=== PATIENT | male | born 1955 | race Caucasian/White ===

== ENCOUNTER 2016-12-07 13:28 | Emergency (ER) | payer BC ==
[2016-12-07 13:59] VITALS: BP 116/63
--- NOTE | 2016-12-07 16:16 | ERNOTE ---
Upper Extremity HPI - Narrative Date of Service: 12/07/16 - General Extremities Pain Location: 2nd finger: left Time Seen by Provider: 12/07/16 15:34 Source: patient, RN notes reviewed Exam Limitations: no limitations - Immun/Allergies/Home Medications Immunizations: IMMUNIZATION HX Immunizations Up to Date Yes History of Influenza Vaccine No Hx Pneumococcal Vaccination No Allergies/Adverse Reactions: Allergies Allergy/AdvReac Type Severity Reaction Status Date / Time codeine AdvReac Nausea Verified 12/07/16 14:00 Home Medications: HOME MEDICATIONS DULoxetine HCL [Cymbalta] 60 mg PO DAILY 11/16/12 [Last Taken Unknown] Ranitidine HCl 150 mg PO BID 11/16/12 [Last Taken Unknown] Amiodarone HCl 200 mg PO DAILY 03/22/14 [Last Taken Unknown] Carvedilol 25 mg PO BID 03/22/14 [Last Taken Unknown] Warfarin Sodium [Coumadin] 5 mg PO MOWEFR 03/22/14 [Last Taken Unknown] Albuterol Sulfate [Proair Hfa] 1 - 2 puff IH Q6H PRN 11/17/14 [Last Taken Unknown] Furosemide [Lasix] 80 mg PO DAILY 01/23/15 [Last Taken Unknown] Warfarin Sodium [Coumadin] 2.5 mg PO SUTUTHSA 01/23/15 [Last Taken Unknown] Fenofibrate,Micronized [Lofibra] 134 mg PO DAILY 06/13/15 [Last Taken Unknown] [place] Oil/[place]-3 Fatty Acids [Fish Oil] 1,200 mg PO BID 06/13/15 [Last Taken Unknown] Atorvastatin Calcium [Lipitor] 20 mg PO DAILY 02/05/16 [Last Taken Unknown] Lisinopril [Zestril] 20 mg PO DAILY 11/02/16 [Last Taken Unknown] Symbicort 80-4.5 Mcg Inhaler INH BID 12/07/16 [Last Taken Unknown] - History of Present Illness Narrative: Ariel is a 61 year old male who presents for a laceration to his left index finger. He cut himself at home with a clean knife just prior to arrival. Date (Duration): 12/07/16 Occurred: just prior to arrival Location of Incident: home Severity: mild Review of Systems - Review of Systems Constitutional: Present: no symptoms reported EYE: Present: no symptoms reported ENT: Present: no symptoms reported Respiratory: Present: no symptoms reported Cardiology: Present: no symptoms reported Gastrointestinal/Abdominal: Present: no symptoms reported Genitourinary: Present: no symptoms reported Musculoskeletal: Absent: joint pain, joint swelling Skin: Absent: lumps, change in color Neurological: Absent: weakness, numbness, tingling Endocrine: Present: no symptoms reported Hematologic/Lymphatic: Present: easy bruising, easy bleeding Psych: Present: no symptoms reported - Patient's Past Medical History Patient History - Medical: Diabetes Type 2, Renal Disease Patient History - Cardiac/Respiratory: Atrial Fibrillation, Cardiomyopathy, CHF , COPD, Hypertension, Hyperlipidemia Patient History - Cancer: No Hx of Cancer Patient History - Surgical Procedures: Pacemaker, Other - Family History Mother Family History - Medical: Diabetes Type 2 Family History - Cardiac/Respiratory: Other Family History - Cancer: No Hx of cancer Father Family History - Medical: Diabetes Type 2 Family History - Cardiac/Respiratory: CVA/Stroke, Hypertension Family History - Cancer: No Hx of cancer - Social History Living Situations: significant other Does anyone smoke in the home?: No Smoking Status: Former smoker Have you smoked in the past 12 months: No Do you dip or chew tobacco: No Alcohol Use: none Drug Use: none - Immunizations Immunizations Up to Date: Yes - reports last tetanus less than 10 yrs Physical Exam - Physical Exam General Appearance: Present: wd/wn, alert, no apparent distress Respiratory: Present: no respiratory distress, no accessory muscle use Cardiovascular/Chest: Present: normal peripheral pulses Extremity Exam: Present: no edema, normal range of motion. Absent: joint swelling Neurological Exam: Present: alert, oriented, normal mood/affect, no motor/ sensory deficits Skin Exam: Present: normal color, warm/dry, other - laceration to dorsum of left index finger between MCP and PIP joints ED Progress - Vital Signs Patient's Vital Signs:: I have reviewed the patient's vital signs. Vital Signs: Vital Signs 12/07/16 13:51 Temperature 36.2 C L Pulse Rate 69 Respiratory 16 Rate Blood Pressure 116/63 O2 Sat by Pulse 93 Oximetry - Progress/Reassessment Chief Complaint: Hand Injury/Pain Progress:: Improved Procedures Left Proximal Dorsal Finger 2nd Digit Anesthesia: 1% Lidocaine I & D Prep: betadine prep Length of Repair/Wound (cm): 2 Wound's Depth/Shape: into subcutaneous, linear Wound Explored: clean, to base, in bloodless field, no foreign body Wound Intervention: irrigated w/saline Distal NVT: neuro/vasc intact, no tendon injury Wound Repaired With: sutures Suture Size/Type: 4-0, nylon Number of Sutures: 5 Layer Closure: Simple Wound Dressing: sterile dressing applied Complications: Pt collin procedure well Departure Clinical Impression: Laceration of index finger of left hand without complication Qualifiers: Encounter type: initial encounter Qualified Code(s): S61.211A - Laceration without foreign body of left index finger without damage to nail, initial encounter - Departure Disposition: Home Follow Up Needed Condition: Good Instructions: Sutured Wound Care, [id number] Additional Instructions: Keep dressing in place and dry for 48 hours May then wash gently with soap and water Apply antibiotic ointment and bandage as needed Ice, elevate Tylenol for pain Have sutures removed in 7 days Referrals: Jefry Flores MD [Primary Care Provider] -
== END 2016-12-07 16:45 | disposition home or self-care (01) ==
LOC: ER 13:28
PROC: 0HQGXZZ Repair Left Hand Skin, External Approach (ICD-10-PCS; principal; 2016-12-07)
DX: S61.211A Laceration without foreign body of left index finger without damage to nail, initial encounter (principal); W26.0XXA Contact with knife, initial encounter; Y92.009 Unspecified place in unspecified non-institutional (private) residence as the place of occurrence of the external cause

== ENCOUNTER 2017-05-24 06:50 | Emergency (ER) | payer BC ==
[2017-05-24] MEDS ORDERED: ALBUTEROL SULFATE 2.5 MG/3 ML VIAL.NEB IH ONE ×3 (07:10→09:01)
[2017-05-24] MEDS ORDERED: DEXAMETHASONE SOD PHOSPHATE 10 MG/ML VIAL IV ONE (07:10)
[2017-05-24] MEDS ORDERED: ALBUTEROL SULFATE/IPRATROPIUM 3 ML NEBU IH ONE ×2 (07:10→07:15)
[2017-05-24] MEDS ORDERED: DEXAMETHASONE SOD PHOSPHATE 10 MG/ML VIAL ONE (07:15)
[2017-05-24] MEDS ORDERED: ALBUTEROL SULFATE 2.5 MG/0.5 ML VIAL.NEB IH ONE ×3 (07:15→09:06)
--- NOTE | 2017-05-24 07:23 | ERNOTE ---
<Jey Andrews - Last Filed: 05/24/17 13:17> Dyspnea - Immun/Allergies/Home Medications Immunizations: IMMUNIZATION HX Immunizations Up to Date Yes History of Influenza Vaccine No Hx Pneumococcal Vaccination No Allergies/Adverse Reactions: Allergies codeine Adverse Reaction (Verified 05/24/17 07:02) Nausea upsets his stomache a little bit Home Medications: HOME MEDICATIONS DULoxetine HCL [Cymbalta] 60 mg PO DAILY 11/16/12 [Last Taken Unknown] Carvedilol 25 mg PO BID 03/22/14 [Last Taken Unknown] Warfarin Sodium [Coumadin] 5 mg PO MOWEFR 03/22/14 [Last Taken Unknown] Albuterol Sulfate [Proair Hfa] 1 - 2 puff IH Q6H PRN 11/17/14 [Last Taken Unknown] Warfarin Sodium [Coumadin] 2.5 mg PO SUTUTHSA 01/23/15 [Last Taken Unknown] Fenofibrate,Micronized [Lofibra] 134 mg PO DAILY 06/13/15 [Last Taken Unknown] [place] Oil/[place]-3 Fatty Acids [Fish Oil] 1,200 mg PO BID 06/13/15 [Last Taken Unknown] Atorvastatin Calcium [Lipitor] 20 mg PO DAILY 02/05/16 [Last Taken Unknown] Lisinopril [Zestril] 20 mg PO DAILY 11/02/16 [Last Taken Unknown] Budesonide/Formoterol Fumarate [Symbicort 80-4.5 Mcg Inhaler] 2 puff IH BID 06/16 [Last Taken Unknown] Allopurinol [Zyloprim] 100 mg PO DAILY 04/23/17 [Last Taken Unknown] Montelukast Sodium [Singulair] 10 mg PO DAILY 04/23/17 [Last Taken Unknown] oxyCODONE HCL [Oxycodone] 10 mg PO Q6H PRN 05/16/17 [Last Taken Unknown] Amiodarone HCl [Cordarone] 200 mg PO DAILY 05/24/17 [Last Taken Unknown] Furosemide [Lasix] 80 mg PO BID #60 tablet 05/24/17 [Last Taken Unknown] Potassium Chloride [K-Dur] 20 meq PO DAILY #30 tab 05/24/17 [Last Taken Unknown] ED Progress - Vital Signs Vital Signs: Vital Signs 05/24/17 05/24/17 05/24/17 06:56 07:22 07:36 Temperature 36.9 C Pulse Rate 65 65 66 Respiratory 18 16 18 Rate Blood Pressure 150/75 O2 Sat by Pulse 96 99 97 Oximetry 05/24/17 05/24/17 05/24/17 07:39 07:52 07:59 Temperature Pulse Rate 60 60 65 Respiratory 21 H 21 H 16 Rate Blood Pressure 165/75 144/78 O2 Sat by Pulse 97 97 95 Oximetry 05/24/17 08:01 Temperature Pulse Rate 65 Respiratory 11 L Rate Blood Pressure 155/89 O2 Sat by Pulse 96 Oximetry - EKG EKG Comments: I have interpreted the second EKG and their is no change from the first. TERRI [id number] He is a little SOB again. We are giving him 40 mg more of IV lasix because of his SOB and his elevated BNP and prominent veins on CXR. we are waiting on his second troponin. We are giving him another albuterol treatment. - X-Ray X-Ray #1 X-Ray: chest Interpretation: Interp. by me - poorly expanded cxr, no infiltrate, probably bronchitis,maybe prominent vasculature - Progress/Reassessment Chief Complaint: Dyspnea Progress:: Improved Progress Note-Subjective: 05/24/17 08:10 0810 Spoke with patient, feeling modestly better, less sob, lungs less tight, abdomen pushing less on diaphragm, getting breathing treatment right now. Looks comfortable. TERRI LOPEZ. Have noted minimally elevated troponin. 05/24/17 11:05 Borderline high D-dimer. Elevated creatinine. Can't do CT chest angio. Will do ultrasound leg veins and give a little more lasix. symptoms continue to improved. DWK. LOPEZ. 05/24/17 1106. 05/24/17 13:17 Much better with additional lasix. Now offers that he has been gaining weight at home in spite of eating less. He will call our coumadin clinic on Friday about his slightly high INR here in the ER today. His elevated BP here in the ER is now slightly better with additional BP medicine here in the ER. His leg vein ultrasound studies are negative for clots today. TERRI LOPEZ. 05/24/17 1319 - Transfer of Care Additional Notes: 0900 05/24/17 His repeat troponin and potassium are essentially unchanged. We will give him another dose of oral potassium. We will continue to monitor him clinically for a while. We are still waiting for a D-dimer level. Departure Clinical Impression: CHF (congestive heart failure) Qualifiers: Congestive heart failure type: unspecified congestive heart failure type Congestive heart failure chronicity: acute on chronic Qualified Code(s): I50.9 - Heart failure, unspecified - Departure Disposition: Home self-care Condition: Good Instructions: Heart Failure, [id number] Additional Instructions: Weigh yourself about the same time daily. If you gain more than two pounds in 24 hours or more than three pounds in 7 days , call your doctor. On Friday morning, call our coumadin clinic about a coumadin dose adjustment. On Friday, call Dr. Flores's office about an office visit for Friday, especially as it pertains to a possible dose change in your lasix and potassium dose. Referrals: Jefry Flores MD [Primary Care Provider] - Prescriptions: Furosemide [Lasix] 80 mg PO BID #60 tablet Potassium Chloride [K-Dur] 20 meq PO DAILY #30 tab <Donta Hewitt - Last Filed: 05/30/17 11:18> Dyspnea - Date Date of Service: 05/24/17 - General Presenting Symptoms: shortness of breath Source: patient Exam Limitations: no limitations - Immun/Allergies/Home Medications Immunizations: IMMUNIZATION HX Immunizations Up to Date Yes History of Influenza Vaccine No Hx Pneumococcal Vaccination No - History of Present Illness Narrative: 62 year old that has been having progressively worsening shortness of breath for two weeks. He believes the onset of the dyspnea was associated with a Indocin (?) or what he calls the "flair up medicine" two weeks ago that was used for his gout. Exertion increases his dyspnea to the point that he is out of breath when he walks across the room. Ariel has used his Albuterol inhaler without resolution of the symptoms. Denies any chest pain, fevers, chills, or N/V. He does notice that the supine position that he feels worse and has abdominal discomfort. 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 Modifying Factors - (Improves): Reports: rest Modifying Factors (Worsens): Reports: activity Associated Symptoms-Dyspnea: Reports: denies symptoms Review of Systems - Review of Systems Constitutional: Present: no symptoms reported EYE: Present: no symptoms reported ENT: Present: no symptoms reported Respiratory: Present: See HPI Cardiology: Present: See HPI Gastrointestinal/Abdominal: Present: no symptoms reported Genitourinary: Present: no symptoms reported Musculoskeletal: Present: no symptoms reported Skin: Present: no symptoms reported Neurological: Present: no symptoms reported Endocrine: Present: no symptoms reported Hematologic/Lymphatic: Present: no symptoms reported - Patient's Past Medical History Patient History - Medical: Diabetes Type 2, Renal Disease Patient History - Cardiac/Respiratory: Asthma, CHF, COPD, Hypertension, Hyperlipidemia Patient History - Cancer: No Hx of Cancer Patient History - Surgical Procedures: Pacemaker, Other Patient History - Other: None - Family History Mother Family History - Medical: Diabetes Type 2 Family History - Cardiac/Respiratory: Other Father Family History - Medical: Diabetes Type 2 Family History - Cardiac/Respiratory: CVA/Stroke, Hypertension - Social History Living Situations: significant other Abuse History: No History of abuse Psych History: No pertinent hx Does anyone smoke in the home?: No Smoking Status: Former smoker Have you smoked in the past 12 months: No Do you dip or chew tobacco: No Alcohol Use: none Drug Use: none - Immunizations Immunizations Up to Date: Yes Hx Pneumococcal Vaccination: No History of Influenza Vaccine: No Physical Exam - Physical Exam General Appearance: Present: alert Eye Exam: Normal inspection: bilateral Ears, Nose, Throat: Present: normal ENT inspection Neck: Present: normal inspection Respiratory: Present: no respiratory distress, no accessory muscle use, decreased breath sounds - bilaterally Cardiovascular/Chest: Present: regular rate, rhythm Gastrointestinal/Abdominal: Present: nondistended, soft, no organomegaly Back Exam: Present: normal inspection Extremity Exam: Present: normal inspection Neurological Exam: Present: alert, oriented, normal mood/affect Skin Exam: Present: normal color, warm/dry ED Progress - Results and Orders Patient's Lab Results:: I have reviewed the patient's lab results. - Vital Signs Patient's Vital Signs:: I have reviewed the patient's vital signs. Vital Signs: Vital Signs 05/24/17 06:56 Temperature 36.9 C Pulse Rate 65 Respiratory 18 Rate Blood Pressure 150/75 O2 Sat by Pulse 96 Oximetry - EKG EKG read: Interp. by me EKG Comments: pacemaker rhythm, rate of 65 - X-Ray X-Ray #1 X-Ray: chest Interpretation: Interp. by me - Progress/Reassessment Progress:: Improved Progress Note-Subjective: 05/24/17 07:44 Feels about 25 % better after the first set of nebulizer treatments. - Transfer of Care Physician Sign Out: Donta Hewitt Receiving Physician: Jey Andrews Pending Results: Labs, X-ray results Expected Disposition: Discharge
[2017-05-24 07:29] LABS: Hematocrit 36.5 % (42.0-52.0); Hemoglobin 11.5 gm/dL (13.5-18.0); Mean Cell Volume 92.2 fl (78-100); Mean Corpuscular Hgb Conc 31.5 g/dl (32-36); Mean Platelet Volume 13.3 fl (6.0-9.5); Neutrophil # 4.4 K/mm3 (1.3-6.0); Neutrophil % 71.4 % (42-75.0); Platelet Count 182 K/mm3 (150-450); Red Blood Count 3.96 M/mm3 (4.7-6.0); Red Cell Distribution Width 15.6 % (11.5-14.0); White Blood Count 6.1 K/mm3 (4.0-10.5)
[2017-05-24 07:50] LABS: Anion Gap 9.7 mmol/L (6.8-13.8); BUN/Creatinine Ratio 11.5 (9.0-21.6); Calcium * 8.9 mg/dL (7.9-10.9); Carbon Dioxide 31.4 mmol/L (24-32.6); Estimated Creat Clear 41.2; Potassium 3.1 mmol/L (3.4-4.6)
[2017-05-24 07:51] LABS: Troponin I 0.123 ng/ml (0.00-0.10)
[2017-05-24] MEDS ORDERED: POTASSIUM CHLORIDE 20 MEQ TABLET.SA PO ONE ×2 (07:53→09:43)
[2017-05-24] MEDS ORDERED: POTASSIUM CHLORIDE 20 MEQ TABLET.SA ONE ×2 (07:55→09:54)
[2017-05-24] MEDS ORDERED: FUROSEMIDE 10 MG/ML VIAL IV ONE ×3 (08:16→10:51)
[2017-05-24] MEDS ORDERED: FUROSEMIDE 10 MG/ML VIAL ONE ×2 (08:24→10:54)
[2017-05-24 09:04] LABS: Prothrombin Time (Patient) 34.6 Seconds (9.4-11.4)
[2017-05-24 09:09] LABS: INR 3.33 INR (0.90-1.10)
[2017-05-24 09:37] LABS: Troponin I 0.119 ng/ml (0.00-0.10)
[2017-05-24 09:41] LABS: Potassium 3.1 mmol/L (3.4-4.6)
[2017-05-24] MEDS ORDERED: ONDANSETRON HCL/PF 2 MG/ML VIAL IV ONE (12:27)
[2017-05-24] MEDS ORDERED: ONDANSETRON HCL/PF 2 MG/ML VIAL ONE (12:28)
[2017-05-24] MEDS ORDERED: METOPROLOL TARTRATE 25 MG TABLET PO ONE (12:31)
[2017-05-24] MEDS ORDERED: ENALAPRILAT DIHYDRATE 2.5 MG/2 ML VIAL IV ONE ×2 (12:31→12:35)
[2017-05-24] MEDS ORDERED: METOPROLOL TARTRATE 25 MG TABLET ONE (12:35)
[2017-05-24 13:25] VITALS: BP 160/89
== END 2017-05-24 13:34 | disposition home or self-care (01) ==
LOC: ER 06:50
DX: I50.9 Heart failure, unspecified (principal); E11.9 Type 2 diabetes mellitus without complications; N28.9 Disorder of kidney and ureter, unspecified; J44.9 Chronic obstructive pulmonary disease, unspecified; I10 Essential (primary) hypertension; E78.5 Hyperlipidemia, unspecified
CPT/HCPCS: 36415; 71010; 80048; 83880; 84132; 84484; 85025; 85379; 85610; 93005; 93970; 96374; 96375; 99285; J2405

== ENCOUNTER 2017-07-30 19:45 | Emergency (ER) | payer BC ==
--- NOTE | 2017-07-30 20:09 | ERNOTE ---
Dyspnea - General Presenting Symptoms: shortness of breath Time Seen by Provider: 07/30/17 19:59 Source: patient Exam Limitations: no limitations - Immun/Allergies/Home Medications Immunizations: IMMUNIZATION HX Immunizations Up to Date Yes History of Influenza Vaccine No Hx Pneumococcal Vaccination No Allergies/Adverse Reactions: Allergies indomethacin Adverse Reaction (Severe, Verified 07/30/17 20:02) Other hospitalized for CHF exacerbation. told it was induced by indomethacin and never to use again codeine Adverse Reaction (Verified 07/30/17 20:02) Nausea upsets his stomache a little bit Home Medications: HOME MEDICATIONS DULoxetine HCL [Cymbalta] 60 mg PO DAILY 11/16/12 [Last Taken Unknown] Carvedilol 37.5 mg PO BID 03/22/14 [Last Taken Unknown] Warfarin Sodium [Coumadin] 5 mg PO MOWEFR 03/22/14 [Last Taken Unknown] Albuterol Sulfate [Proair Hfa] 1 - 2 puff IH Q6H PRN 11/17/14 [Last Taken Unknown] Warfarin Sodium [Coumadin] 2.5 mg PO SUTUTHSA 01/23/15 [Last Taken Unknown] Fenofibrate,Micronized [Lofibra] 134 mg PO DAILY 06/13/15 [Last Taken Unknown] [place] Oil/[place]-3 Fatty Acids [Fish Oil] 1,200 mg PO BID 06/13/15 [Last Taken Unknown] Atorvastatin Calcium [Lipitor] 20 mg PO DAILY 02/05/16 [Last Taken Unknown] Allopurinol [Zyloprim] 100 mg PO DAILY 04/23/17 [Last Taken Unknown] Montelukast Sodium [Singulair] 10 mg PO DAILY 04/23/17 [Last Taken Unknown] oxyCODONE HCL [Oxycodone] 10 mg PO Q6H PRN 05/16/17 [Last Taken Unknown] Furosemide [Lasix] 80 mg PO DAILY 06/07/17 [Last Taken Unknown] Potassium Chloride [K-Dur] 20 meq PO DAILY 06/07/17 [Last Taken Unknown] Sacubitril/Valsartan [Entresto 49 mg-51 mg Tablet] 1 each PO DAILY 06/07/17 [ Last Taken Unknown] Albuterol Sulfate/Ipratropium [Duoneb 2.5-0.5MG/3ML Soln] 3 ml IH QID 07/11/17 [ Last Taken Unknown] Budesonide/Formoterol Fumarate [Symbicort 160-4.5 Mcg Inhaler] 2 puff IH BID 10/17 [Last Taken Unknown] Levothyroxine Sodium [Levoxyl] 50 mcg PO DAILY 07/11/17 [Last Taken Unknown] Morphine Sulfate [Morphine Sulfate Conc. Oral Solution] 5 mg PO Q2H PRN [Last Taken Unknown] Polyethylene Glycol 3350 [Miralax] 17 gm PO DAILY 07/11/17 [Last Taken Unknown] Ranitidine HCl [Zantac] 150 mg PO BID 07/11/17 [Last Taken Unknown] - History of Present Illness Narrative: Pt states he has been short of breath of and on through out the day worsening this evening. It is associated with tightness in his diaphragm. He took liquid morphine prescribed for him and tried to sleep this evening but "the yogurt I ate came up in my throat and made my shortness of breath worse". 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 - Morphine Initiating event: Reports: unknown Frequency of episodes: Reports: occassional episodes Modifying Factors (Worsens): Reports: activity Associated Symptoms-Dyspnea: Denies: fever/chills, chest pain/discomfort Review of Systems - Review of Systems Constitutional: Absent: recent illness, fever, chills EYE: Present: no symptoms reported ENT: Present: no symptoms reported Respiratory: Present: See HPI Cardiology: Absent: chest pain, edema Gastrointestinal/Abdominal: Present: other - reflux symptoms Genitourinary: Present: no symptoms reported Musculoskeletal: Present: no symptoms reported Skin: Present: no symptoms reported Neurological: Present: no symptoms reported Endocrine: Present: no symptoms reported Hematologic/Lymphatic: Present: no symptoms reported Psych: Present: no symptoms reported - Patient's Past Medical History Patient History - Medical: Diabetes Type 2, Renal Disease Patient History - Cardiac/Respiratory: Asthma, CHF, COPD, Hypertension, Hyperlipidemia Patient History - Cancer: No Hx of Cancer Patient History - Surgical Procedures: Pacemaker, Other Patient History - Other: None - Family History Mother Family History - Medical: Diabetes Type 2 Family History - Cardiac/Respiratory: Other Father Family History - Medical: Diabetes Type 2 Family History - Cardiac/Respiratory: CVA/Stroke, Hypertension - Social History Living Situations: significant other Abuse History: No History of abuse Psych History: No pertinent hx Does anyone smoke in the home?: No Alcohol Use: none Drug Use: none - Immunizations Immunizations Up to Date: Yes Hx Pneumococcal Vaccination: No History of Influenza Vaccine: No Physical Exam - Physical Exam General Appearance: Present: wd/wn, alert, no apparent distress Head Exam: Present: normal inspection, no evidence of injury Eye Exam: Normal inspection: bilateral Ears, Nose, Throat: Present: normal ENT inspection Neck: Present: normal inspection, nontender Respiratory: Present: no respiratory distress, no accessory muscle use, lungs clear Cardiovascular/Chest: Present: regular rate, rhythm, no murmur, normal peripheral pulses Gastrointestinal/Abdominal: Present: normal bowel sounds, nontender Back Exam: Present: normal inspection, normal range of motion Extremity Exam: Present: normal inspection, normal range of motion, no edema Neurological Exam: Present: alert, oriented, normal mood/affect Skin Exam: Present: normal color, warm/dry Lymphatic Exam: Present: no adenopathy ED Progress - Results and Orders Patient's Lab Results:: I have reviewed the patient's lab results. Results and Orders: Laboratory Tests 07/30/17 07/30/17 07/30/17 20:24 20:24 20:24 WBC 8.1 Hgb 11.4 L Hct 35.9 L Plt Count 159 PT INR (Anticoag Therapy) D-Dimer 0.69 H Sodium 148 H Potassium 3.6 Chloride 110 H Carbon Dioxide 28.7 BUN 26 H Creatinine 1.68 H Est GFR (Non-Af Amer) 45 L Random Glucose 117 H Calcium 8.4 Total Bilirubin 0.6 AST 16 ALT 18 L Alkaline Phosphatase 68 Troponin I 0.120 H* B-Natriuretic Peptide 32009 H Total Protein 6.6 Albumin 2.6 L 07/30/17 07/30/17 20:24 22:35 WBC Hgb Hct Plt Count PT 44.8 H INR (Anticoag Therapy) 4.31 H* D-Dimer Sodium Potassium Chloride Carbon Dioxide BUN Creatinine Est GFR (Non-Af Amer) Random Glucose Calcium Total Bilirubin AST ALT Alkaline Phosphatase Troponin I 0.147 H* B-Natriuretic Peptide Total Protein Albumin - Vital Signs Patient's Vital Signs:: I have reviewed the patient's vital signs. - EKG EKG: other - ventricular pacing EKG read: Interp. by me - X-Ray X-Ray #1 X-Ray: chest Interpretation: Reviewed by me X-ray Comments: mild vascular congestion, cardiomegaly. - Progress/Reassessment Progress Note-Subjective: 07/30/17 23:17 Repeat troponin is increasing from initial troponin. Discussed values with the patient and his . Pt wanting to wait until tomorrow and see Dr. Flores, his insists that he allow himself to be transferred to [facility], pt agrees. 07/30/17 23:[address] Gonzalez cardiology at [facility]. He agrees with transfer and asks me to contact the ED. I called the ED at [facility] and spoke with Dr. Love he agrees to accept the patient in transfer and evaluate further there. [facility] ambulance called for transportation. Departure Clinical Impression: Non-STEMI (non-ST elevated myocardial infarction) CHF (congestive heart failure) Qualifiers: Congestive heart failure type: systolic Congestive heart failure chronicity: acute on chronic Qualified Code(s): I50.23 - Acute on chronic systolic ( congestive) heart failure - Departure Disposition: [facility] in [place] Condition: Fair Referrals: Jefry Flores MD [Primary Care Provider] -
[2017-07-30 20:30] LABS: Hematocrit 35.9 % (42.0-52.0); Hemoglobin 11.4 gm/dL (13.5-18.0); Mean Cell Volume 88.9 fl (78-100); Mean Corpuscular Hemoglobin 28.2 pg (27-31); Mean Corpuscular Hgb Conc 31.8 g/dl (32-36); Mean Platelet Volume 13.9 fl (6.0-9.5); Neutrophil % 73.7 % (42-75.0); Platelet Count 159 K/mm3 (150-450); Red Blood Count 4.04 M/mm3 (4.7-6.0); Red Cell Distribution Width 17.8 % (11.5-14.0); White Blood Count 8.1 K/mm3 (4.0-10.5)
[2017-07-30 20:49] LABS: Albumin * 2.6 gm/dl (3.4-5.0); Anion Gap 12.9 mmol/L (6.8-13.8); BUN/Creatinine Ratio 15.5 (9.0-21.6); Bilirubin, Total 0.6 mg/dL (0.0-1.1); Ca. Corrected For Albumin 9.2 mg/dL (8.4-10.2); Calcium * 8.4 mg/dL (7.9-10.9); Carbon Dioxide 28.7 mmol/L (24-32.6); Potassium 3.6 mmol/L (3.4-4.6); Total Protein 6.6 gm/dL (6.2-8.2)
[2017-07-30 20:50] LABS: Troponin I 0.12 ng/ml (0.00-0.10)
[2017-07-30] MEDS ORDERED: FUROSEMIDE 10 MG/ML VIAL IV ONE (21:35)
[2017-07-30 21:38] LABS: Prothrombin Time (Patient) 44.8 Seconds (9.4-11.4)
[2017-07-30 21:39] LABS: INR 4.31 INR (0.90-1.10)
[2017-07-30] MEDS ORDERED: FUROSEMIDE 10 MG/ML VIAL ONE (21:50)
[2017-07-31 00:08] VITALS: BP 178/102
== END 2017-07-31 00:05 | disposition short-term general hospital (02) ==
LOC: ER 19:45
DX: I21.4 Non-ST elevation (NSTEMI) myocardial infarction (principal); I50.23 Acute on chronic systolic (congestive) heart failure; Z95.0 Presence of cardiac pacemaker

== ENCOUNTER 2017-10-28 10:56 | Emergency (ER) | payer BC ==
[2017-10-28] MEDS ORDERED: NORMAL SALINE 1,000 ML IV ONE (11:25)
[2017-10-28] MEDS ORDERED: ONDANSETRON HCL/PF 2 MG/ML VIAL IV ONE (11:25)
[2017-10-28] MEDS ORDERED: ONDANSETRON HCL/PF 2 MG/ML VIAL ONE (11:40)
[2017-10-28 11:45] LABS: Hematocrit 45.3 % (42.0-52.0); Mean Cell Volume 91.5 fl (78-100); Mean Corpuscular Hemoglobin 30.3 pg (27-31); Mean Corpuscular Hgb Conc 33.1 g/dl (32-36); Mean Platelet Volume 13.6 fl (6.0-9.5); Neutrophil # 6.5 K/mm3 (1.3-6.0); Neutrophil % 91.7 % (42-75.0); Platelet Count 190 K/mm3 (150-450); Red Blood Count 4.95 M/mm3 (4.7-6.0); Red Cell Distribution Width 16.2 % (11.5-14.0); White Blood Count 7.1 K/mm3 (4.0-10.5)
[2017-10-28 12:01] LABS: Prothrombin Time (Patient) 20.7 Seconds (9.0-11.0)
[2017-10-28 12:09] LABS: Albumin * 3.9 gm/dl (3.4-5.0); BUN/Creatinine Ratio 18.6 (9.0-21.6); Bilirubin, Total 0.9 mg/dL (0.0-1.1); Ca. Corrected For Albumin 9.2 mg/dL (8.4-10.2); Calcium * 9.4 mg/dL (7.9-10.9); Total Protein 8.2 gm/dL (6.2-8.2)
[2017-10-28 12:17] LABS: INR 2.05 INR (0.90-1.10)
[2017-10-28 12:34] LABS: Urine Bilirubin Negative (NEGATIVE); Urine Blood Negative /ul (NEGATIVE); Urine Ketone Negative (NEGATIVE); Urine Nitrite Negative (NEGATIVE); Urine Protein Negative (NEGATIVE); Urine Urobilinogen Normal (NORMAL)
[2017-10-28] MEDS ORDERED: POTASSIUM CHLORIDE 20 MEQ TABLET.SA ONE (12:39)
[2017-10-28] MEDS ORDERED: POTASSIUM CHLORIDE 20 MEQ TABLET.SA PO ONE (12:39)
[2017-10-28 12:42] VITALS: BP 146/65
[2017-10-28 12:42] LABS: Urine Appearance Clear; Urine Color Yellow; Urine RBC TRACE /hpf (0-5); Urine WBC 0-5 /hpf (0-5)
[2017-10-28 12:43] LABS: Urine Bacteria TRACE
--- NOTE | 2017-10-28 12:43 | ERNOTE ---
Medical Problem HPI - Narrative Date of Service: 10/28/17 - General Chief Complaint: Nausea/Vomiting Time Seen by Provider: 10/28/17 11:15 Source: patient, RN notes reviewed, old records Exam Limitations: no limitations - Immun/Allergies/Home Medications Immunizations: IMMUNIZATION HX Immunizations Up to Date Yes History of Influenza Vaccine Yes Hx Pneumococcal Vaccination Yes Allergies/Adverse Reactions: Allergies indomethacin Adverse Reaction (Severe, Verified 10/28/17 11:14) Other hospitalized for CHF exacerbation. told it was induced by indomethacin and never to use again codeine Adverse Reaction (Verified 10/28/17 11:14) Nausea upsets his stomache a little bit Home Medications: HOME MEDICATIONS DULoxetine HCL [Cymbalta] 60 mg PO DAILY 11/16/12 [Last Taken Unknown] Carvedilol 25 mg PO BID 03/22/14 [Last Taken Unknown] Warfarin Sodium [Coumadin] 5 mg PO MOWEFR 03/22/14 [Last Taken Unknown] Albuterol Sulfate [Proair Hfa] 1 - 2 puff IH Q6H PRN 11/17/14 [Last Taken Unknown] Warfarin Sodium [Coumadin] 2.5 mg PO SUTUTHSA 01/23/15 [Last Taken Unknown] Fenofibrate,Micronized [Lofibra] 134 mg PO DAILY 06/13/15 [Last Taken Unknown] [place] Oil/[place]-3 Fatty Acids [Fish Oil] 1,200 mg PO BID 06/13/15 [Last Taken Unknown] Atorvastatin Calcium [Lipitor] 20 mg PO DAILY 02/05/16 [Last Taken Unknown] Allopurinol [Zyloprim] 100 mg PO DAILY 04/23/17 [Last Taken Unknown] Montelukast Sodium [Singulair] 10 mg PO DAILY 04/23/17 [Last Taken Unknown] oxyCODONE HCL [Oxycodone] 10 mg PO Q6H PRN 05/16/17 [Last Taken Unknown] Furosemide [Lasix] 80 mg PO DAILY 06/07/17 [Last Taken Unknown] Potassium Chloride [K-Dur] 20 meq PO DAILY 06/07/17 [Last Taken Unknown] Sacubitril/Valsartan [Entresto 49 mg-51 mg Tablet] 1 each PO DAILY 06/07/17 [ Last Taken Unknown] Albuterol Sulfate/Ipratropium [Duoneb 2.5-0.5MG/3ML Soln] 3 ml IH QID 07/11/17 [ Last Taken Unknown] Budesonide/Formoterol Fumarate [Symbicort 160-4.5 Mcg Inhaler] 2 puff IH BID 10/17 [Last Taken Unknown] Levothyroxine Sodium [Levoxyl] 50 mcg PO DAILY 07/11/17 [Last Taken Unknown] Morphine Sulfate [Morphine Sulfate Conc. Oral Solution] 5 mg PO Q2H PRN [Last Taken Unknown] Polyethylene Glycol 3350 [Miralax] 17 gm PO PRN 07/11/17 [Last Taken Unknown] Ranitidine HCl [Zantac] 150 mg PO BID 07/11/17 [Last Taken Unknown] Ondansetron [Zofran Odt] 8 mg PO Q8H PRN #12 tab 10/28/17 [Last Taken Unknown] - History of Present History Narrative: 62 year old male brought to the ED by family for vomiting and diarrhea that began yesterday evening. He has not been able to take his numerous routine medications last night or this morning. He denies abdominal pain. He reports that his significant other has had similar symptoms. Date (Duration): 10/27/17 Review of Systems - Review of Systems Constitutional: Present: fatigue, malaise. Absent: chills, diaphoresis EYE: Present: no symptoms reported ENT: Present: no symptoms reported Respiratory: Absent: shortness of breath, cough Cardiology: Absent: chest pain, palpitations, syncope Gastrointestinal/Abdominal: Present: nausea, vomiting, diarrhea. Absent: abdominal pain Genitourinary: Absent: dysuria, decreased urinary output Musculoskeletal: Absent: muscle pain, joint pain Skin: Absent: rash, lesions Neurological: Absent: headache, dizziness/light-headedness Endocrine: Present: no symptoms reported Hematologic/Lymphatic: Present: easy bruising, easy bleeding Psych: Present: no symptoms reported - Patient's Past Medical History Patient History - Medical: Diabetes Type 2, GERD, Renal Disease, Renal Failure, Other - TBI, Diverticulitis Patient History - Cardiac/Respiratory: Atrial Fibrillation, Asthma, Cardiomyopathy, CHF, COPD, Hypertension, Hyperlipidemia Patient History - Cancer: No Hx of Cancer Patient History - Surgical Procedures: Appendectomy, Cholecystectomy, Colonoscopy, EGD, Pacemaker, Other - Cardiac ablation, Cardioversion Patient History - Other: None - Family History Mother Family History - Medical: Diabetes Type 2 Family History - Cardiac/Respiratory: Other Father Family History - Medical: Diabetes Type 2 Family History - Cardiac/Respiratory: CVA/Stroke, Hypertension - Social History Living Situations: significant other Abuse History: No History of abuse Psych History: No pertinent hx Smoking Status: Former smoker Alcohol Use: occasionally Drug Use: none - Immunizations Immunizations Up to Date: Yes Hx Pneumococcal Vaccination: Yes History of Influenza Vaccine: Yes Physical Exam - Physical Exam General Appearance: Present: wd/wn, alert, no apparent distress, obese, other - Disheveled, appears to not feel well Head Exam: Present: normal inspection Neck: Present: normal inspection, nontender, supple Respiratory: Present: no respiratory distress, no accessory muscle use, lungs clear, expiration (prolonged) Cardiovascular/Chest: Present: regular rate, rhythm, normal peripheral pulses, systolic murmur Gastrointestinal/Abdominal: Present: normal bowel sounds, nontender, nondistended, soft Extremity Exam: Present: normal inspection, normal range of motion Neurological Exam: Present: alert, oriented, normal mood/affect, no motor/ sensory deficits Skin Exam: Present: normal color, warm/dry ED Progress - Results and Orders Patient's Lab Results:: I have reviewed the patient's lab results. - Vital Signs Patient's Vital Signs:: I have reviewed the patient's vital signs. Vital Signs: Vital Signs 10/28/17 10/28/17 10/28/17 11:07 11:13 12:08 Temperature 37.6 C H 37.6 C H Pulse Rate 70 70 65 Respiratory 22 H 22 H 9 L Rate Blood Pressure 128/54 128/54 148/65 O2 Sat by Pulse 98 98 97 Oximetry - EKG EKG: other - paced rhythm - Progress/Reassessment Chief Complaint: Nausea/Vomiting Progress:: Improved Plan - Plan Plan: Symptoms improved with Zofran IVP. 500 ml NS given. Able to tolerate liquids orally. 40 mEq KCl given po. INR and BNP stable. Discussed progression of oral intake and indications for needing to return. Patient in agreement with plan. Departure Clinical Impression: Vomiting and diarrhea - Departure Disposition: Home self-care Condition: Stable Instructions: Viral Gastroenteritis, Adult, [id number] Additional Instructions: Liquids as discussed, advance diet as tolerated Return if symptoms worsen or if you are not doing better by Referrals: Jefry Flores MD [Primary Care Provider] - Prescriptions: Ondansetron [Zofran Odt] 8 mg PO Q8H PRN #12 tab PRN Reason: Nausea
== END 2017-10-28 12:55 | disposition home or self-care (01) ==
LOC: ER 10:56
DX: R11.10 Vomiting, unspecified (principal); R19.7 Diarrhea, unspecified; I48.91 Unspecified atrial fibrillation; Z79.01 Long term (current) use of anticoagulants; K21.9 Gastro-esophageal reflux disease without esophagitis; I50.9 Heart failure, unspecified; I10 Essential (primary) hypertension; E78.5 Hyperlipidemia, unspecified; Z95.0 Presence of cardiac pacemaker; Z87.891 Personal history of nicotine dependence
CPT/HCPCS: 36415; 80053; 81001; 83880; 85025; 85610; 93005; 96374; 99283; J2405

== ENCOUNTER 2021-01-22 02:40 | Inpatient (IN) ==
[2021-01-22] MEDS ORDERED: ONDANSETRON HCL/PF 2 MG/ML VIAL IV ONE (02:47)
[2021-01-22] MEDS ORDERED: LORazepam 2 MG/ML DISP.SYRIN IV ONE (02:48)
--- NOTE | 2021-01-22 03:01 | ERNOTE ---
Lower Extremity HPI - Narrative Date of Service: 01/22/21 - General Lower Extremities Pain: hip: right Time Seen by Provider: 01/22/21 02:40 Source: patient, EMS Exam Limitations: no limitations - Immun/Allergies/Home Medications Immunizations: IMMUNIZATION HX Immunizations Up to Date Yes History of Influenza Vaccine Yes Hx Pneumococcal Vaccination Yes Allergies/Adverse Reactions: Allergies Allergy/AdvReac Type Severity Reaction Status Date / Time indomethacin AdvReac Severe Other Verified 01/22/21 10:10 NSAIDS (Non-Steroidal AdvReac Severe CHF Verified 01/22/21 10:10 Anti-Inflamma codeine AdvReac Mild Nausea Verified 01/22/21 10:10 Home Medications: HOME MEDICATIONS Cholecalciferol (Vitamin D3) [Vitamin D3] 2,000 unit PO BID 05/31/18 [Last Taken Unknown] Montelukast Sodium [Singulair] 10 mg PO HS 05/31/18 [Last Taken Unknown] allopurinol 100 mg tablet 300 mg PO DAILY tab 12/21/18 [Last Taken Unknown] apixaban 5 mg tablet 5 mg PO BID 12/10/19 [Last Taken Unknown] famotidine 20 mg tablet 20 mg PO DAILY tab 01/19/20 [Last Taken Unknown] omega-3 fatty acids 1,000 mg capsule 1,000 mg PO BID 01/19/20 [Last Taken Unknown] potassium chloride 20 mEq tablet,extended release(part/cryst) 20 meq PO DAILY tab 01/19/20 [Last Taken Unknown] vit C 250 mg-E 200 unit-zinc 40 mg-copper 1 [id number] capsule 1 tab PO DAILY 01/19/20 [Last Taken Unknown] blood-glucose meter See Rx Instructions .ROUTE .MEDSUPPLY #1 ea 04/19/20 [Last Taken Unknown] Sacubitril/Valsartan [Entresto 97 mg-103 mg Tablet] 1 ea PO BID 06/23/20 [Last Taken Unknown] Torsemide [Demadex] 60 mg PO DAILY 06/23/20 [Last Taken Unknown] finasteride 5 mg tablet 5 mg PO DAILY 06/23/20 [Last Taken Unknown] albuterol sulfate 90 mcg/actuation aerosol inhaler 2 puff IH Q6H PRN g 06/27/20 [Last Taken Unknown] metolazone 2.5 mg tablet 2.5 mg PO .weekly PRN tab 06/27/20 [Last Taken Unknown] multivitamin 1 tab PO DAILY 06/27/20 [Last Taken Unknown] oxycodone 5 mg tablet 10 mg PO Q6H PRN tab 06/27/20 [Last Taken Unknown] carvedilol 25 mg tablet 12.5 mg PO QAM tab 07/26/20 [Last Taken Unknown] duloxetine 60 mg capsule,delayed release 60 mg PO DAILY #90 cap 08/08/20 [Last Taken Unknown] atorvastatin 40 mg tablet 40 mg PO DAILY #30 tab 09/26/20 [Last Taken Unknown] blood sugar diagnostic See Rx Instructions .ROUTE .MEDSUPPLY ea 10/23/20 [Last Taken Unknown] glycopyrrolate 9 mcg-formoterol 4.8 mcg HFA aerosol inhaler 2 puff IH BID 10/23/20 [Last Taken Unknown] spironolactone 25 mg tablet 25 mg PO DAILY PRN 10/23/20 [Last Taken Unknown] levothyroxine 50 mcg tablet 50 mcg PO DAILY #30 tab 11/13/20 [Last Taken Unknown] fenofibrate micronized 134 mg capsule 134 mg PO DAILY #30 cap 11/27/20 [Last Taken Unknown] tamsulosin 0.4 mg capsule 0.8 mg PO HS cap 12/29/20 [Last Taken Unknown] Ascorbic Acid [Vitamin C] 500 mg PO DAILY 01/22/21 [Last Taken Unknown] Polyethylene Glycol 3350 [Miralax] 8.5 gm PO DAILY 01/22/21 [Last Taken Unknown] Carvedilol [Coreg] 6.25 mg PO QPM 01/23/21 [Last Taken Unknown] Cyanocobalamin (Vitamin B-12) [Vitamin B12] 5,000 mcg PO DAILY 01/23/21 [Last Taken Unknown] [place]-3S/Dha/Epa/Fish Oil [Fish Oil 1,200 mg Softgel] 1 ea PO BID 01/23/21 [Last Taken Unknown] Sacubitril/Valsartan [Entresto 97 mg-103 mg Tablet] 1 ea PO BID 01/23/21 [Last Taken Unknown] - History of Present Illness Narrative: This patient is a 65-year-old gentleman who arrived by ambulance for right hip pain. He had let his dog out and decided to walk to the mailbox. He slipped on the ice and landed on his buttocks, injuring his right hip. He laid outside for about 40 minutes. He is on a blood thinner, Eliquis. He denies any other injury. He has no distal numbness or tingling. He took oxycodone at home. The pain is severe at times. The pain is worse with movement and certain positions. Review of Systems - Review of Systems Constitutional: Absent: fever EYE: Present: no symptoms reported ENT: Absent: ear pain, nose congestion, nasal drainage, sore throat Respiratory: Absent: shortness of breath, cough Cardiology: Absent: chest pain, syncope Gastrointestinal/Abdominal: Absent: nausea, vomiting, diarrhea, constipation, abdominal pain Genitourinary: Absent: frequency, pain, dysuria, hematuria Musculoskeletal: Present: joint pain Skin: Present: other - No laceration Neurological: Absent: headache, numbness, tingling Endocrine: Present: no symptoms reported Hematologic/Lymphatic: Present: other - He is on Eliquis. Psych: Present: no symptoms reported Medical History (Last Reviewed 01/22/21 @ 02:55 by Tom Paige MD) COPD (chronic obstructive pulmonary disease) (Chronic) Peripheral neuropathy (Chronic) Diabetes mellitus (Chronic) History of atrial fibrillation (Chronic) Congestive heart failure (CHF) History of gout Hx of renal failure Hx: UTI (urinary tract infection) Surgical History: Surgical History (Last Reviewed 01/22/21 @ 02:57 by Tom Paige MD) History of appendectomy History of cardiac radiofrequency ablation (RFA) History of laparoscopic cholecystectomy History of permanent cardiac pacemaker placement History of urologic surgery Hx of cardiac catheterization 03/20/14- global decrease in LV function EF 35% 06/17/20 - mild diffuse CAD. elevated Lt ventricular end-diastolic pressure. HTN Family History: Family History (Last Reviewed 01/22/21 @ 02:57 by Tom Paige MD) Father Hypertension Emphysema lung Diabetes CVA (cerebral vascular accident) Mother , age 77 Heart disease Diabetes Uncle Diabetes Other Multiple sclerosis Social History: (Last Reviewed 01/22/21 @ 02:57 by Tom Paige MD) Social History: adopted: No foster care: No Marital status: Single household members: none current occupational status: retired Highest level of school completed/degree received: Associate degree: academi Service: Yes branch: [employer] Tobacco: Smoking Status: Former smoker Alcohol: alcohol intake: current alcohol intake frequency: 0-2 drinks per day Substance Use: substance use type: does not use Exercise: frequency: does not exercise Personal Safety: do you feel safe at home: Yes victim of physical abuse: No victim of emotional abuse: No Physical Exam - Physical Exam General Appearance: Present: wd/wn, alert, mild distress - He is lying on a backboard. He appears to be in pain with movement. Head Exam: Present: normal inspection, no evidence of injury Eye Exam: Normal inspection: bilateral Ears, Nose, Throat: Present: normal ENT inspection Neck: Present: normal inspection, supple Respiratory: Present: no respiratory distress, normal breath sounds, lungs clear Cardiovascular/Chest: Present: regular rate, rhythm, no murmur Gastrointestinal/Abdominal: Present: normal bowel sounds, nontender, nondistended, soft, no organomegaly Extremity Exam: Present: other - There is no gross deformity of the right hip. He has no pain with compression of the pelvis. He has no pain laterally on the hip. His tenderness is anteriorly over the hip joint. Neurological Exam: Present: alert, oriented, normal mood/affect, no motor/sensory deficits - He has no gross lateralizing deficit. Skin Exam: Present: normal color, warm/dry Progress - Date and Time Seen: Date and Time: 01/22/21 04:32 I contacted [facility]. We will decide on treatment in the morning. I spoke with Dr. Murillo. He accepted the patient for admission. - Results and Orders Patient's Lab Results:: I have reviewed the patient's lab results. Results and Orders: Laboratory Tests 01/22/21 01/22/21 01/22/21 03:00 03:00 03:00 WBC 7.2 RBC 4.16 L Hgb 13.2 L Hct 40.9 L MCV 98.3 MCH 31.7 H MCHC 32.3 RDW 14.4 H Plt Count 158 MPV 12.5 H Immature Gran % (Auto) 0.30 Immature Gran # (Auto) 0.02 Neutrophils % 70.2 Lymphocytes % 18.4 L Monocytes % 8.2 Eosinophils % 2.5 Basophils % 0.4 Nucleated RBC % 0.0 Neutrophils # 5.1 Lymphocytes # 1.33 L Monocytes # 0.6 Eosinophils # 0.2 Absolute Basophils 0.0 PT 11.4 H INR (Anticoag Therapy) 1.10 H Sodium 143 H Plasma Sodium 144 H Potassium 4.1 Chloride 108 H Carbon Dioxide 27.5 Anion Gap 11.6 BUN 59 H Creatinine 2.60 H Est GFR (Non-Af Amer) 27 L BUN/Creatinine Ratio 22.7 H Random Glucose 132 H Calcium 9.1 Calcium Adj for Albumin 8.9 Total Bilirubin 0.4 AST 25 ALT 30 Alkaline Phosphatase 51 Troponin I Total Protein 7.6 Albumin 3.9 SARS-CoV-2 (PCR) 01/22/21 01/22/21 04:15 05:15 WBC RBC Hgb Hct MCV MCH MCHC RDW Plt Count MPV Immature Gran % (Auto) Immature Gran # (Auto) Neutrophils % Lymphocytes % Monocytes % Eosinophils % Basophils % Nucleated RBC % Neutrophils # Lymphocytes # Monocytes # Eosinophils # Absolute Basophils PT INR (Anticoag Therapy) Sodium Plasma Sodium Potassium Chloride Carbon Dioxide Anion Gap BUN Creatinine Est GFR (Non-Af Amer) BUN/Creatinine Ratio Random Glucose Calcium Calcium Adj for Albumin Total Bilirubin AST ALT Alkaline Phosphatase Troponin I 0.075 Total Protein Albumin SARS-CoV-2 (PCR) Not detected - Vital Signs Patient's Vital Signs:: I have reviewed the patient's vital signs. Vital Signs: Vital Signs 01/22/21 02:45 Temperature 36.3 C Pulse Rate 108 H Respiratory Rate 20 Blood Pressure 131/78 O2 Sat by Pulse Oximetry 100 - EKG EKG #1 EKG read: Interp. by wi EKG Comments: Ventricular paced Rate 71 It appears similar to previous EKG dated 06/23/2020 - X-Ray X-Ray #1 X-Ray: hip Interpretation: Interp. by me X-ray Comments: Abnormality of the proximal neck of the right femur consistent with nondisplaced subcapital fracture. No fracture noted at the pelvis. X-Ray #2 X-Ray: chest Interpretation: Interp. by me X-ray Comments: No acute abnormality noted. Stable nodule. Pacemaker in place. No infiltrate noted. Normal heart size. Departure Clinical Impression: Subcapital fracture of right hip Qualifiers: Encounter type: subsequent encounter Fracture type: closed Fracture healing: with routine healing Qualified Code(s): S72.011D - Unspecified intracapsular fracture of right femur, subsequent encounter for closed fracture with routine healing - Departure Disposition: Still a patient Condition: Stable
[2021-01-22 03:05] LABS: Hematocrit 40.9 % (42.0-52.0); Hemoglobin 13.2 gm/dL (13.5-18.0); Mean Cell Volume 98.3 fl (78-100); Mean Corpuscular Hemoglobin 31.7 pg (27-31); Mean Corpuscular Hgb Conc 32.3 g/dl (32-36); Mean Platelet Volume 12.5 fl (8-11.3); Neutrophil # 5.1 K/mm3 (1.3-6.0); Neutrophil % 70.2 % (42-75.0); Platelet Count 158 K/mm3 (150-450); Red Blood Count 4.16 M/mm3 (4.7-6.0); Red Cell Distribution Width 14.4 % (11.5-14.0); White Blood Count 7.2 K/mm3 (4.0-10.5)
[2021-01-22] MEDS: MORPHINE SULFATE 4 MG/ML SYRG IV PRN ×4 (03:12→13:37)
[2021-01-22 03:13] LABS: Prothrombin Time (Patient) 11.4 Seconds (9.1-10.7)
[2021-01-22 03:18] LABS: Albumin * 3.9 gm/dl (3.4-5.0); Anion Gap 11.6 mmol/L (6.8-13.8); BUN/Creatinine Ratio 22.7 (9.0-21.6); Bilirubin, Total 0.4 mg/dL (0.0-1.1); Ca. Corrected For Albumin 8.9 mg/dL (8.4-10.2); Calcium * 9.1 mg/dL (7.9-10.9); Carbon Dioxide 27.5 mmol/L (24-32.6); Potassium 4.1 mmol/L (3.4-4.6); Total Protein 7.6 gm/dL (6.2-8.2)
[2021-01-22 03:20] LABS: INR 1.1 INR (0.92-1.08)
[2021-01-22] MEDS ORDERED: NORMAL SALINE 500 ML IV ONE (04:08)
[2021-01-22] MEDS ORDERED: NORMAL SALINE 1,000 ML IV PRN (04:12)
--- NOTE | 2021-01-22 09:11 | HP ---
Chief Complaint - Chief Complaint Date of Service: 01/22/21 Time of Service: 08:40 Chief Complaint: Right hip pain History of Present Illness: 65-year-old male with a past medical history of COPD, congestive heart failure, diabetes mellitus, atrial fibrillation on anticoagulation, status post pacemaker, CKD 3, recurrent UTIs, peripheral neuropathy presents from home status post fall with right hip pain. He states he was going outside to his mailbox when he slipped on ice and landed on his buttocks. He was unable to get up and laid on the ground for 40 minutes. He called his girlfriend and she came and called EMS. In the emergency department he was found to have a right mildly impacted fracture of the junction of the right femoral head and neck with underlying arthritic change. No joint dislocation or subluxation. He has been evaluated by orthopedics and they would like to take him to the OR later today. Medical History (Last Reviewed 01/22/21 @ 02:55 by Tom Paige MD) COPD (chronic obstructive pulmonary disease) (Chronic) Peripheral neuropathy (Chronic) Diabetes mellitus (Chronic) History of atrial fibrillation (Chronic) Congestive heart failure (CHF) History of gout Hx of renal failure Hx: UTI (urinary tract infection) Surgical History: Surgical History (Last Reviewed 01/22/21 @ 02:57 by Tom Paige MD) History of appendectomy History of cardiac radiofrequency ablation (RFA) History of laparoscopic cholecystectomy History of permanent cardiac pacemaker placement History of urologic surgery Hx of cardiac catheterization 03/20/14- global decrease in LV function EF 35% 06/17/20 - mild diffuse CAD. elevated Lt ventricular end-diastolic pressure. HTN Family History: Family History (Last Reviewed 01/22/21 @ 02:57 by Tom Paige MD) Father CVA (cerebral vascular accident) Diabetes Emphysema lung Hypertension Mother , age 77 Diabetes Heart disease Uncle Diabetes Other Multiple sclerosis Social History: (Last Reviewed 01/22/21 @ 02:57 by Tom Paige MD) Social History: adopted: No foster care: No Marital status: Single household members: none current occupational status: retired Highest level of school completed/degree received: Associate degree: academi Service: Yes branch: [employer] Tobacco: Smoking Status: Former smoker Alcohol: alcohol intake: current alcohol intake frequency: 0-2 drinks per day Substance Use: substance use type: does not use Exercise: frequency: does not exercise Personal Safety: do you feel safe at home: Yes victim of physical abuse: No victim of emotional abuse: No Review Of Systems (GEN) - Review of Systems Generalized/Overall Review: Absent: Chills, Fever Respiratory: Absent: Shortness of Breath Cardiac: Absent: Chest Pain Abdominal: Absent: Abdominal Pain Musculoskeletal: Present: Joint Pain - Right hip Misc: All systems neg except as marked Immunizations: IMMUNIZATION HX Immunizations Up to Date Yes History of Influenza Vaccine Yes Hx Pneumococcal Vaccination Yes Allergies/Adverse Reactions: Allergies Allergy/AdvReac Type Severity Reaction Status Date / Time indomethacin AdvReac Severe Other Verified 10/23/20 11:57 NSAIDS (Non-Steroidal AdvReac Severe CHF Verified 10/23/20 11:57 Anti-Inflamma codeine AdvReac Mild Nausea Verified 10/23/20 11:57 Home Medications: HOME MEDICATIONS Cholecalciferol (Vitamin D3) [Vitamin D3] 2,000 unit PO BID 05/31/18 [Last Taken Unknown] Montelukast Sodium [Singulair] 10 mg PO HS 05/31/18 [Last Taken Unknown] allopurinol 100 mg tablet 300 mg PO DAILY tab 12/21/18 [Last Taken Unknown] apixaban 5 mg tablet 5 mg PO BID 12/10/19 [Last Taken Unknown] famotidine 20 mg tablet 20 mg PO DAILY tab 01/19/20 [Last Taken Unknown] omega-3 fatty acids 1,000 mg capsule 1,000 mg PO BID 01/19/20 [Last Taken Unknown] potassium chloride 20 mEq tablet,extended release(part/cryst) 20 meq PO DAILY tab 01/19/20 [Last Taken Unknown] tamsulosin 0.4 mg capsule 0.8 mg PO DAILY cap 01/19/20 [Last Taken Unknown] vit C 250 mg-E 200 unit-zinc 40 mg-copper 1 [id number] capsule 1 tab PO BID 01/19/20 [Last Taken Unknown] blood-glucose meter See Rx Instructions .ROUTE .MEDSUPPLY #1 ea 04/19/20 [Last Taken Unknown] Sacubitril/Valsartan [Entresto 97 mg-103 mg Tablet] 1 ea PO BID 06/23/20 [Last Taken Unknown] Torsemide [Demadex] 60 mg PO DAILY 06/23/20 [Last Taken Unknown] finasteride 5 mg tablet 5 mg PO DAILY 06/23/20 [Last Taken Unknown] albuterol sulfate 90 mcg/actuation aerosol inhaler 2 puff IH Q6H PRN g 06/27/20 [Last Taken Unknown] metolazone 2.5 mg tablet 2.5 mg PO .weekly PRN tab 06/27/20 [Last Taken Unknown] multivitamin 1 tab PO DAILY 06/27/20 [Last Taken Unknown] oxycodone 5 mg tablet 10 mg PO Q6H PRN tab 06/27/20 [Last Taken Unknown] carvedilol 25 mg tablet 12.5 mg PO BID tab 07/26/20 [Last Taken Unknown] duloxetine 60 mg capsule,delayed release 60 mg PO DAILY #90 cap 08/08/20 [Last Taken Unknown] atorvastatin 40 mg tablet 40 mg PO DAILY #30 tab 09/26/20 [Last Taken Unknown] blood sugar diagnostic See Rx Instructions .ROUTE .MEDSUPPLY ea 10/23/20 [Last Taken Unknown] cephalexin 250 mg capsule 250 mg PO DAILY cap 10/23/20 [Last Taken Unknown] glycopyrrolate 9 mcg-formoterol 4.8 mcg HFA aerosol inhaler 2 puff IH BID 10/23/20 [Last Taken Unknown] spironolactone 25 mg tablet 25 mg PO DAILY PRN 10/23/20 [Last Taken Unknown] levothyroxine 50 mcg tablet 50 mcg PO DAILY #30 tab 11/13/20 [Last Taken Unknown] fenofibrate micronized 134 mg capsule 134 mg PO DAILY #30 cap 11/27/20 [Last Taken Unknown] tamsulosin 0.4 mg capsule 0.8 mg PO HS cap 12/29/20 [Last Taken Unknown] Ascorbic Acid [Vitamin C] 500 mg PO DAILY 01/22/21 [Last Taken Unknown] Exam - Exam Vital Signs: Vital Signs - Last Taken Temp 37.4 C 01/22/21 07:32 Pulse 70 01/22/21 07:32 Resp 12 01/22/21 07:32 BP 132/58 01/22/21 07:32 Pulse Ox 95 01/22/21 07:32 Constitutional: Present: Alert, Oriented x3, Cooperative, Well developed, Well nourished, No distress ENT Exam: Present: hearing grossly normal, moist mucous membranes Eye Exam: bilateral eye: normal inspection, EOMI Neck: Present: non-tender, supple. Absent: lymphadenopathy (R), lymphadenopathy (L) Back Exam: Present: no CVA tenderness, no vertebral tenderness Respiratory: Present: lungs clear, no respiratory distress, no accessory muscle use, No wheezing. Absent: crackles, rhonchi Cardiovascular/Chest: Present: normal peripheral pulses, regular rate, rhythm, no edema, no murmur Peripheral Pulses: dorsalis-pedis (R): 1+, dorsalis-pedis (L): 1+ Abdomen: Present: Normal bowel sounds, soft, nontender Extremity: Present: no pedal edema Skin Exam: Present: normal color, warm/dry Neurologic: Present: alert, normal mood/affect Appearance: Present: appropriate appearance, appropriate insight Eye contact: Present: cooperative, good eye contact Thoughts: Present: normal thought pattern, normal mood /affect Diagnostic Studies: Abnormal Lab Results 01/22/21 01/22/21 01/22/21 Range/Units 03:00 03:00 03:00 RBC 4.16 L (4.7-6.0) M/mm3 Hgb 13.2 L (13.5-18.0) gm/dL Hct 40.9 L (42.0-52.0) % MCH 31.7 H (27-31) pg RDW 14.4 H (11.5-14.0) % MPV 12.5 H (8-11.3) fl Lymphocytes % 18.4 L (20-51) % Lymphocytes # 1.33 L (1.5-3.5) k/mm3 PT 11.4 H (9.1-10.7) Seconds INR (Anticoag Therapy) 1.10 H (0.92-1.08) INR Sodium 143 H (132-142) mmol/L Plasma Sodium 144 H (130-142) mmol/L Chloride 108 H (97-106) mmol/L BUN 59 H (6-23) mg/dL Creatinine 2.60 H (0.4-1.4) mg/dL Est GFR (Non-Af Amer) 27 L (60-130) mL/min BUN/Creatinine Ratio 22.7 H (9.0-21.6) Random Glucose 132 H (70-110) mg/dL Laboratory Results WBC 7.2 K/mm3 (4.0-10.5) 01/22/21 03:00 RBC 4.16 M/mm3 (4.7-6.0) L 01/22/21 03:00 Hgb 13.2 gm/dL (13.5-18.0) L 01/22/21 03:00 Hct 40.9 % (42.0-52.0) L 01/22/21 03:00 MCV 98.3 fl (78-100) 01/22/21 03:00 MCH 31.7 pg (27-31) H 01/22/21 03:00 MCHC 32.3 g/dl (32-36) 01/22/21 03:00 RDW 14.4 % (11.5-14.0) H 01/22/21 03:00 Plt Count 158 K/mm3 (150-450) 01/22/21 03:00 MPV 12.5 fl (8-11.3) H 01/22/21 03:00 Immature Gran % (Auto) 0.30 % (0.001-0.429) 01/22/21 03:00 Immature Gran # (Auto) 0.02 K/mm3 (0.000-0.0310) 01/22/21 03:00 Neutrophils % 70.2 % (42-75.0) 01/22/21 03:00 Lymphocytes % 18.4 % (20-51) L 01/22/21 03:00 Monocytes % 8.2 % (0.0-9) 01/22/21 03:00 Eosinophils % 2.5 % (0.0-3.0) 01/22/21 03:00 Basophils % 0.4 % (0.0-1.0) 01/22/21 03:00 Nucleated RBC % 0.0 k/mm3 (0-1) 01/22/21 03:00 Neutrophils # 5.1 K/mm3 (1.3-6.0) 01/22/21 03:00 Lymphocytes # 1.33 k/mm3 (1.5-3.5) L 01/22/21 03:00 Monocytes # 0.6 k/mm3 (0.0-1.0) 01/22/21 03:00 Eosinophils # 0.2 k/mm3 (0.0-0.7) 01/22/21 03:00 Absolute Basophils 0.0 k/mm3 (0.0-0.1) 01/22/21 03:00 PT 11.4 Seconds (9.1-10.7) H 01/22/21 03:00 INR (Anticoag Therapy) 1.10 INR (0.92-1.08) H 01/22/21 03:00 Sodium 143 mmol/L (132-142) H 01/22/21 03:00 Plasma Sodium 144 mmol/L (130-142) H 01/22/21 03:00 Potassium 4.1 mmol/L (3.4-4.6) 01/22/21 03:00 Chloride 108 mmol/L (97-106) H 01/22/21 03:00 Carbon Dioxide 27.5 mmol/L (24-32.6) 01/22/21 03:00 Anion Gap 11.6 mmol/L (6.8-13.8) 01/22/21 03:00 BUN 59 mg/dL (6-23) H 01/22/21 03:00 Creatinine 2.60 mg/dL (0.4-1.4) H 01/22/21 03:00 Est GFR (Non-Af Amer) 27 mL/min (60-130) L 01/22/21 03:00 BUN/Creatinine Ratio 22.7 (9.0-21.6) H 01/22/21 03:00 Random Glucose 132 mg/dL (70-110) H 01/22/21 03:00 Calcium 9.1 mg/dL (7.9-10.9) 01/22/21 03:00 Calcium Adj for Albumin 8.9 mg/dL (8.4-10.2) 01/22/21 03:00 Total Bilirubin 0.4 mg/dL (0.0-1.1) 01/22/21 03:00 AST 25 U/L (0-48) 01/22/21 03:00 ALT 30 U/L (19-67) 01/22/21 03:00 Alkaline Phosphatase 51 U/L (50-170) 01/22/21 03:00 Troponin I 0.075 ng/mL (0.00-0.10) 01/22/21 05:15 Total Protein 7.6 gm/dL (6.2-8.2) 01/22/21 03:00 Albumin 3.9 gm/dl (3.4-5.0) 01/22/21 03:00 SARS-CoV-2 (PCR) Not detected (NotDetected) 01/22/21 04:15 Assessment/Plan - Narrative Narrative: 65-year-old male with a past medical history of COPD, congestive heart failure, diabetes mellitus, atrial fibrillation on anticoagulation, status post pacemaker, CKD 3, recurrent UTIs, peripheral neuropathy presents from home status post fall with right hip pain. He states he was going outside to his mailbox when he slipped on ice and landed on his buttocks. He was unable to get up and laid on the ground for 40 minutes. He called his girlfriend and she came and called EMS. In the emergency department he was found to have a right mildly impacted fracture of the junction of the right femoral head and neck with underlying arthritic change. No joint dislocation or subluxation. He has been evaluated by orthopedics and they would like to take him to the OR later today. His pain is being controlled with IV morphine. He denies chest pain, shortness of breath, dizziness or palpitations. He is medically cleared for the procedure today. Plan #1 orthopedics following with plans to go to the OR today. #2 pain management #3 hold anticoagulation until after the procedure #3 start bowel regimen after the procedure #4 CBC and CMP in the morning #5 PT once cleared by Ortho - Assessment/Plan (1) Subcapital fracture of right hip Problem: Acute Qualifiers: Encounter type: initial encounter Fracture type: closed Qualified Code(s): S72.011A - Unspecified intracapsular fracture of right femur, initial encounter for closed fracture (2) CKD (chronic kidney disease) stage 3, GFR 30-59 ml/min Problem: Chronic Qualifiers: Chronic kidney disease stage 3 subtype: stage 3b (GFR 30-44) Qualified Code(s): N18.32 - Chronic kidney disease, stage 3b (3) Hypertension Problem: Chronic Qualifiers: Hypertension type: essential hypertension (4) CHF (congestive heart failure) Problem: Chronic Qualifiers: (5) History of atrial fibrillation Problem: Chronic (6) Diabetes type 2, controlled Problem: Chronic Qualifiers: (7) COPD (chronic obstructive pulmonary disease) Problem: Chronic (8) Peripheral neuropathy Problem: Chronic
--- NOTE | 2021-01-22 10:59 | ANES ---
Anesthesia Pre Procedure Eval Vitals/Labs: Last Vital Signs Temp 37.4 C 01/22/21 07:32 Pulse 70 01/22/21 07:32 Resp 12 01/22/21 07:32 BP 132/58 01/22/21 07:32 Pulse Ox 95 01/22/21 07:32 HOME MEDICATIONS Cholecalciferol (Vitamin D3) [Vitamin D3] 2,000 unit PO BID 05/31/18 [Last Taken Unknown] Montelukast Sodium [Singulair] 10 mg PO HS 05/31/18 [Last Taken Unknown] allopurinol 100 mg tablet 300 mg PO DAILY tab 12/21/18 [Last Taken Unknown] apixaban 5 mg tablet 5 mg PO BID 12/10/19 [Last Taken Unknown] famotidine 20 mg tablet 20 mg PO DAILY tab 01/19/20 [Last Taken Unknown] omega-3 fatty acids 1,000 mg capsule 1,000 mg PO BID 01/19/20 [Last Taken Unknown] potassium chloride 20 mEq tablet,extended release(part/cryst) 20 meq PO DAILY tab 01/19/20 [Last Taken Unknown] tamsulosin 0.4 mg capsule 0.8 mg PO DAILY cap 01/19/20 [Last Taken Unknown] vit C 250 mg-E 200 unit-zinc 40 mg-copper 1 [id number] capsule 1 tab PO BID 01/19/20 [Last Taken Unknown] blood-glucose meter See Rx Instructions .ROUTE .MEDSUPPLY #1 ea 04/19/20 [Last Taken Unknown] Sacubitril/Valsartan [Entresto 97 mg-103 mg Tablet] 1 ea PO BID 06/23/20 [Last Taken Unknown] Torsemide [Demadex] 60 mg PO DAILY 06/23/20 [Last Taken Unknown] finasteride 5 mg tablet 5 mg PO DAILY 06/23/20 [Last Taken Unknown] albuterol sulfate 90 mcg/actuation aerosol inhaler 2 puff IH Q6H PRN g 06/27/20 [Last Taken Unknown] metolazone 2.5 mg tablet 2.5 mg PO .weekly PRN tab 06/27/20 [Last Taken Unknown] multivitamin 1 tab PO DAILY 06/27/20 [Last Taken Unknown] oxycodone 5 mg tablet 10 mg PO Q6H PRN tab 07/28/20 [Last Taken Unknown] carvedilol 25 mg tablet 12.5 mg PO BID tab 07/26/20 [Last Taken Unknown] duloxetine 60 mg capsule,delayed release 60 mg PO DAILY #90 cap 08/08/20 [Last Taken Unknown] atorvastatin 40 mg tablet 40 mg PO DAILY #30 tab 09/26/20 [Last Taken Unknown] blood sugar diagnostic See Rx Instructions .ROUTE .MEDSUPPLY ea 10/23/20 [Last Taken Unknown] cephalexin 250 mg capsule 250 mg PO DAILY cap 10/23/20 [Last Taken Unknown] glycopyrrolate 9 mcg-formoterol 4.8 mcg HFA aerosol inhaler 2 puff IH BID 10/23/20 [Last Taken Unknown] spironolactone 25 mg tablet 25 mg PO DAILY PRN 10/23/20 [Last Taken Unknown] levothyroxine 50 mcg tablet 50 mcg PO DAILY #30 tab 11/13/20 [Last Taken Unknown] fenofibrate micronized 134 mg capsule 134 mg PO DAILY #30 cap 11/27/20 [Last Taken Unknown] tamsulosin 0.4 mg capsule 0.8 mg PO HS cap 12/29/20 [Last Taken Unknown] Ascorbic Acid [Vitamin C] 500 mg PO DAILY 01/22/21 [Last Taken Unknown] Allergies/Adverse Reactions: Allergies Allergy/AdvReac Type Severity Reaction Status Date / Time indomethacin AdvReac Severe Other Verified 01/22/21 10:10 NSAIDS (Non-Steroidal AdvReac Severe CHF Verified 01/22/21 10:10 Anti-Inflamma codeine AdvReac Mild Nausea Verified 01/22/21 10:10 - Planned Procedure Planned Procedure: HIP FX Medication List Reviewed:: Yes Allergies Verified: Yes Medical History (Last Reviewed 01/22/21 @ 10:53 by Iron Barclay CRNA) COPD (chronic obstructive pulmonary disease) (Chronic) Peripheral neuropathy (Chronic) Diabetes mellitus (Chronic) History of atrial fibrillation (Chronic) Congestive heart failure (CHF) History of gout Hx of renal failure Hx: UTI (urinary tract infection) Surgical History (Last Reviewed 01/22/21 @ 10:53 by Iron Barclay CRNA) History of appendectomy History of cardiac radiofrequency ablation (RFA) History of laparoscopic cholecystectomy History of permanent cardiac pacemaker placement History of urologic surgery Hx of cardiac catheterization 03/20/14- global decrease in LV function EF 35% 06/17/20 - mild diffuse CAD. elevated Lt ventricular end-diastolic pressure. HTN Family History (Last Reviewed 01/22/21 @ 10:53 by Iron Barclay CRNA) Father Diabetes Emphysema lung Hypertension CVA (cerebral vascular accident) Mother , age 77 Diabetes Heart disease Uncle Diabetes Brother Multiple sclerosis - Family Anesthesia History Family History:: no untoward family reactions to anesthesia, no familial bleeding tendencies, no family history of clotting disorders, no family history of premature - Airway/Neck/Teeth Teeth Condition: missing - few missing 2 caps Neck Exam: full range of motion Mallampatti Score: 3 Thyromental (T-M) distance: > 6 cm Mandibulo Hyoid distance: > 3 cm - Respiratory Respiratory History: asthma, COPD Respiratory Physical: wheezing Smoking Status: Former smoker - quit 2013 Discussed smoking cessation including day of surgery: Yes Sleep Apnea currently treated: Yes Sleep Apnea by current assessment: Yes Discussed Risks/Treatment of MASSIEL: Yes - Cardiovascular Cardiac History: arrhythmia - Afib, apparent ventricular issues as well, CVA/stroke, hypertension, hyperlipidemia Tolerate Activity: Fair Heart Sounds: S1 & S2, Regular - Gastrointestinal NPO since: 0 - Anesthesia Assessment and Plan ASA Class: PS, III Anesthesia Type Plan: General LMA - Assuming supine position.
--- NOTE | 2021-01-22 12:00 | CONS ---
[facility] - General Date of Service: 01/22/21 Narrative: 65-year-old male presents to the ED status post a fall with right hip pain. Patient notes pain is worse with movement better with rest. The ER performed an x-ray revealing an impacted nondisplaced right femoral neck fracture. Patient notes he previously has a history of COPD, atrial fibrillation on Eliquis, previous history of stroke that he notes he recovered from without complication. Patient notes he is retired he denies any other previous right hip trauma or significant pain with ambulation. Patient denies any other significant acute findings, no other significant concerns upon evaluation today. Source: patient - History of Present Illness Allergies/Adverse Reactions: Allergies indomethacin Adverse Reaction (Severe, Verified 01/22/21 10:10) Other hospitalized for CHF exacerbation. told it was induced by indomethacin and never to use again NSAIDS (Non-Steroidal Anti-Inflamma Adverse Reaction (Severe, Verified 01/22/21 10:10) CHF Per spd tech codeine Adverse Reaction (Mild, Verified 01/22/21 10:10) Nausea upsets his stomache a little bit Home Medications: Home Medications Medication Instructions Recorded Last Taken Cholecalciferol (Vitamin D3) 2,000 unit PO BID 05/31/18 Unknown [Vitamin D3] Montelukast Sodium [Singulair] 10 mg PO HS 05/31/18 Unknown allopurinol 100 mg tablet 300 mg PO DAILY tab 12/21/18 Unknown apixaban 5 mg tablet 5 mg PO BID 12/10/19 Unknown famotidine 20 mg tablet 20 mg PO DAILY tab 01/19/20 Unknown omega-3 fatty acids 1,000 mg 1,000 mg PO BID 01/19/20 Unknown capsule potassium chloride 20 mEq 20 meq PO DAILY tab 01/19/20 Unknown tablet,extended release(part/cryst) tamsulosin 0.4 mg capsule 0.8 mg PO DAILY cap 01/19/20 Unknown vit C 250 mg-E 200 unit-zinc 40 1 tab PO BID 01/19/20 Unknown mg-copper 1 [id number] capsule blood-glucose meter See Rx Instructions .ROUTE 04/19/20 Unknown .MEDSUPPLY #1 ea Sacubitril/Valsartan [Entresto 97 1 ea PO BID 06/23/20 Unknown mg-103 mg Tablet] Torsemide [Demadex] 60 mg PO DAILY 06/23/20 Unknown finasteride 5 mg tablet 5 mg PO DAILY 06/23/20 Unknown albuterol sulfate 90 mcg/actuation 2 puff IH Q6H PRN g 06/27/20 Unknown aerosol inhaler metolazone 2.5 mg tablet 2.5 mg PO .weekly PRN tab 06/27/20 Unknown multivitamin 1 tab PO DAILY 06/27/20 Unknown oxycodone 5 mg tablet 10 mg PO Q6H PRN tab 06/27/20 Unknown carvedilol 25 mg tablet 12.5 mg PO BID tab 07/26/20 Unknown duloxetine 60 mg capsule,delayed 60 mg PO DAILY #90 cap 08/08/20 Unknown release atorvastatin 40 mg tablet 40 mg PO DAILY #30 tab 09/26/20 Unknown blood sugar diagnostic See Rx Instructions .ROUTE 10/23/20 Unknown .MEDSUPPLY ea cephalexin 250 mg capsule 250 mg PO DAILY cap 10/23/20 Unknown glycopyrrolate 9 mcg-formoterol 2 puff IH BID 10/23/20 Unknown 4.8 mcg HFA aerosol inhaler spironolactone 25 mg tablet 25 mg PO DAILY PRN 10/23/20 Unknown levothyroxine 50 mcg tablet 50 mcg PO DAILY #30 tab 11/13/20 Unknown fenofibrate micronized 134 mg 134 mg PO DAILY #30 cap 11/27/20 Unknown capsule tamsulosin 0.4 mg capsule 0.8 mg PO HS cap 12/29/20 Unknown Ascorbic Acid [Vitamin C] 500 mg PO DAILY 01/22/21 Unknown Procedures Closed [endoscopic] biopsy of large intestine (11/17/12) Endoscopic polypectomy of large intestine (07/06/08) Esophagogastroduodenoscopy [EGD] with closed biopsy (05/18/08) LAPAROSCOPIC CHOLECYSTECTOMY (07/03/10) Other urethroscopy (05/25/08) Repair Left Hand Skin, External Approach (12/07/16) [Endoscopic] polypectomy of rectum (07/06/08) Medications - Medications Current Medications: Current Medications Sodium Chloride (Sodium Chloride 0.9%) 1,000 mls @ 100 mls/hr IV .Q10H PRN PRN Reason: HYDRATION Stop: 02/21/21 04:13 Last Admin: 01/22/21 04:39 Dose: 100 mls/hr Documented by: Morphine Sulfate (Morphine Sulfate 4 Mg/Ml Syrg) 4 mg IV Q20M PRN PRN Reason: Pain Stop: 02/21/21 03:01 Last Admin: 01/22/21 08:42 Dose: 4 mg Documented by: Physical Examination - Exam Vital Signs: Vital Signs - Last Taken Temp 37.3 C 01/22/21 11:47 Pulse 70 01/22/21 11:47 Resp 12 01/22/21 11:47 BP 116/70 01/22/21 11:47 Pulse Ox 94 01/22/21 11:47 O2 Oxygen Delivery Method Room Air Constitutional: Present: Alert, Cooperative, Mild distress Respiratory: Present: no respiratory distress Extremity: Present: other - Right lower extremity--> sensation tact light touch, diffuse tenderness about right hip, no obvious wounds or significant deformity, distal capillary refill brisk Skin Exam: Present: normal color, warm/dry Appearance: Present: appropriate appearance Eye contact: Present: cooperative, good eye contact Thoughts: Present: normal thought pattern - Results and Findings: Lab/Microbiology results last 24 hrs: Abnormal/Pending Laboratory Last 24 HRS 01/22/21 01/22/21 01/22/21 03:00 03:00 03:00 RBC 4.16 L Hgb 13.2 L Hct 40.9 L MCH 31.7 H RDW 14.4 H MPV 12.5 H Lymphocytes % 18.4 L Lymphocytes # 1.33 L PT 11.4 H INR (Anticoag Therapy) 1.10 H Sodium 143 H Plasma Sodium 144 H Chloride 108 H BUN 59 H Creatinine 2.60 H Est GFR (Non-Af Amer) 27 L BUN/Creatinine Ratio 22.7 H Random Glucose 132 H - Assessments/Findings (1) Subcapital fracture of right hip Problem: Acute Qualifiers: Encounter type: initial encounter Fracture type: closed Qualified Code(s): S72.011A - Unspecified intracapsular fracture of right femur, initial encounter for closed fracture Plan - Plan Plan: -65-year-old male presents status post fall with a right femoral neck fracture. Note the fracture is nondisplaced he does have diffuse moderate degenerative change. Note patient denies any previous significant pain with weightbearing or any other activity. Based on his current activity level as well as fracture pathology would recommend percutaneous fixation of right femoral neck fracture. Discussed risk versus benefits with patient including but not limited to infection, bleeding, cardiac and stroke risk, inherent risk of surgery, future need for further implantation and possible total hip arthroplasty, fracture, malunion versus nonunion fracture healing, hardware complications. Patient expressed understanding wishes to proceed with surgical intervention. All questions were answered and consent was obtained. Patient was still awaiting preoperative evaluation from the medicine team prior to surgical intervention. Patient will continue as a patient here monitor him acutely adjust treatment plan appropriately.
[2021-01-22] MEDS ORDERED: RINGER'S SOLUTION,LACTATED 1,000 ML IV PRN (12:30)
[2021-01-22] MEDS ORDERED: ceFAZolin SODIUM 1 GM VIAL IV PRN (12:30)
[2021-01-22] MEDS ORDERED: KETOROLAC TROMETHAMINE 30 MG/ML VIAL ONE (14:06)
[2021-01-22] MEDS ORDERED: fentaNYL CITRATE/PF 50 MCG/ML AMPUL ONE (14:06)
[2021-01-22] MEDS ORDERED: PROPOFOL VIAL IV ONE (14:06)
[2021-01-22] MEDS ORDERED: ONDANSETRON HCL/PF 2 MG/ML VIAL ONE (14:06)
[2021-01-22] MEDS ORDERED: SEVOFLURANE 250 ML BTL IH ONE (14:07)
[2021-01-22] MEDS ORDERED: ceFAZolin SODIUM 1 GM VIAL ONE (14:07)
[2021-01-22] MEDS ORDERED: LIDOCAINE HCL 20 ML VIAL ONE (14:10)
[2021-01-22] MEDS ORDERED: BUPIVACAINE HCL 50 ML VIAL IJ ONE ×2 (15:01→15:05)
[2021-01-22] MEDS ORDERED: MAG HYDROX/ALUMINUM HYD/SIMETH 30 ML UDC PO PRN (15:16)
[2021-01-22] MEDS ORDERED: MAGNESIUM HYDROXIDE 30 ML UDC PO PRN (15:16)
[2021-01-22] MEDS ORDERED: MORPHINE SULFATE 2 MG/ML DISP.SYRIN IV PRN (15:16)
[2021-01-22] MEDS ORDERED: ACETAMINOPHEN 500 MG TABLET PO PRN (15:16)
--- NOTE | 2021-01-22 15:16 | OR ---
Operative Report - Dictated Report Narrative: Date: 01/21/2022 Surgeon: Manuel Pelayo M.D. Mammography Supervisor: Negro Fernando PA-C Preoperative diagnosis: Closed right nondisplaced femoral neck fracture Postoperative diagnosis:Closed right nondisplaced femoral neck fracture Operations and procedures: 1. Percutaneous fixation right nondisplaced femoral neck fracture 2. Intraoperative interpretation of radiographs Anesthesia: General plus local Specimens: None Estimated blood loss: 25 mL Retained implants: [employer] 7.0 millimeter 32 millimeter threads cannulated screws 105x2 and 100 millimeter lengths with 2 washers Complications: None Indications for procedure: Mr. Tapia is a 65-year-old gentleman who injured the right hip after ground- level fall at home on getting his mail. He was admitted to the hospital after being evaluated in the emergency department. Once the medical provider felt that they were stable for surgical treatment, the risks and benefits alternatives were discussed. The risks of , blood clots, bleeding, infection, nerve/tendon/blood vessel injury, malunion, nonunion, failure of implants, painful implants, arthrosis, and need for additional procedures were discussed. The extremity was marked and consent was obtained on the floor. Procedure: After marking the operative extremity on the floor, the patient was taken to the operating room. A timeout was performed. IV antibiotics consisting of Ancef were administered. A general anesthetic was induced by anesthesia, and the patient was then placed onto a fracture table with a well-padded perineal post. The nonoperative leg was placed in a well-padded traction boot in slight extension without any traction with an SCD on the leg. The operative leg was placed in a well-padded traction boot. No traction or manipulation was performed. Preliminary images were attained utilizing C-arm in both the AP and lateral views. This confirmed that we had obtained adequate visualization of the fracture as well as reduction. Next the hip was then prepped and draped in a standard sterile fashion. Next three guidewires were placed percutaneously in an inverted triangle fashion. The inferior screws placed centered on the lateral view and along the inferior neck cortex on the AP view. The 2 superior screws were placed along the anterior and posterior cortex on the lateral view and along the inferior portion of the superior cortex on the AP in order to obtain as long of screws as possible. This was done with a starting point above the level of the lesser trochanter. C-arm was utilized in order to confirm the placement and to ensure that the tips of the guidewires were not penetrating the joint. The screws were then measured, the outer cortex was drilled, and the 3 screws were placed securing them to the bone on the lateral aspect providing fixation across the fracture. C-arm was again utilized to ensure that the screws were not into the joint and that they stabilized the fracture. The wounds were then thoroughly irrigated. Final images were obtained. The hip was placed through range of motion and showed no crepitance. The subcutaneous tissue was closed with 3-0 Vicryl, and the skin was closed with carlos. Sterile dressings of Xeroform, 4 x 4, and Tegaderm were applied. All sponge, s harp, and instrument counts were correct prior to closing the wounds. The patient was then awoken and transferred to the postanesthesia care unit in stable condition.
--- NOTE | 2021-01-22 15:33 | ANES ---
Post Anesthesia Discharge - Transfer of Care Transfer of Care handoff given to nurse: Yes - Discharge from PACU Discharge from PACU when meets criteria: Yes - Awake in PACU.
[2021-01-22] MEDS: oxyCODONE HCL/ACETAMINOPHEN 1 TAB TABLET PO PRN ×2 (17:52→20:04)
[2021-01-22] MEDS: ceFAZolin SODIUM 1 GM in DEXTROSE 5 % IN WATER 100 ML IV SCH ×4 (17:52→22:27)
[2021-01-22] MEDS: SENNOSIDES/DOCUSATE SODIUM 1 TAB TABLET PO SCH (20:04)
[2021-01-23] MEDS: oxyCODONE HCL/ACETAMINOPHEN 1 TAB TABLET PO PRN ×6 (00:59→15:31)
[2021-01-23] MEDS: MORPHINE SULFATE 4 MG/ML SYRG IV PRN (02:39)
[2021-01-23] MEDS: ceFAZolin SODIUM 1 GM in DEXTROSE 5 % IN WATER 100 ML IV SCH ×2 (04:20)
[2021-01-23 06:08] LABS: Hematocrit 33.7 % (42.0-52.0); Hemoglobin 10.5 gm/dL (13.5-18.0); Mean Corpuscular Hemoglobin 31.2 pg (27-31); Mean Corpuscular Hgb Conc 31.2 g/dl (32-36); Mean Platelet Volume 13.3 fl (8-11.3); Platelet Count 119 K/mm3 (150-450); Red Blood Count 3.37 M/mm3 (4.7-6.0); Red Cell Distribution Width 14.7 % (11.5-14.0); White Blood Count 8.4 K/mm3 (4.0-10.5)
[2021-01-23 06:16] LABS: Anion Gap 9.6 mmol/L (6.8-13.8); BUN/Creatinine Ratio 18.1 (9.0-21.6); Calcium * 8.2 mg/dL (7.9-10.9); Carbon Dioxide 28.3 mmol/L (24-32.6); Estimated Creat Clear 41.1; Potassium 3.9 mmol/L (3.4-4.6)
--- NOTE | 2021-01-23 06:51 | ANES ---
Post Anesthesia Assessment - Vital Signs Vitals: Last Vital Signs Temp 37.4 C 01/23/21 03:00 Pulse 70 01/23/21 05:52 Resp 16 01/23/21 03:00 BP 116/68 01/23/21 05:52 Pulse Ox 99 01/23/21 05:52 Airway Patency: Normal - Mental Status Level Of Consciousness: Awake, Alert, Appropriate - Pain Level Pain Score: 0 - N/V Assessment Nausea/Vomiting Presence: None Dehydration:: No
[2021-01-23] MEDS: APIXABAN 5 MG TABLET PO SCH ×2 (09:43→20:14)
[2021-01-23] MEDS ORDERED: ALBUTEROL SULFATE 2.5 MG/0.5 ML VIAL.NEB IH PRN (10:08)
[2021-01-23] MEDS ORDERED: METOLAZONE 2.5 MG TABLET PO PRN (10:08)
[2021-01-23] MEDS: CARVEDILOL 25 MG TABLET PO SCH ×2 (11:17→12:07)
[2021-01-23] MEDS: POTASSIUM CHLORIDE 20 MEQ TABLET.SA PO SCH (11:17)
[2021-01-23] MEDS: FENOFIBRATE,MICRONIZED 134 MG CAPSULE PO SCH (11:18)
[2021-01-23] MEDS: FINASTERIDE 5 MG TABLET PO SCH ×3 (11:18→20:14)
[2021-01-23] MEDS: FAMOTIDINE 20 MG TABLET PO SCH (11:18)
[2021-01-23] MEDS: LEVOTHYROXINE SODIUM 50 MCG TABLET PO SCH (11:19)
[2021-01-23] MEDS: DULoxetine HCL 30 MG CAPSULE.SA PO SCH (11:19)
[2021-01-23] MEDS: ASCORBIC ACID 500 MG TABLET PO SCH (11:20)
[2021-01-23] MEDS: MULTIVITAMINS 1 CAP CAPSULE PO SCH (11:20)
[2021-01-23] MEDS: TORSEMIDE 20 MG TABLET PO SCH (11:20)
[2021-01-23] MEDS: CHOLECALCIFEROL 1,000 UNIT CAPSULE PO SCH ×2 (11:21→20:15)
[2021-01-23] MEDS: SPIRONOLACTONE 25 MG TABLET PO PRN (11:26)
[2021-01-23] MEDS ORDERED: CARVEDILOL 12.5 MG TABLET PO SCH (11:30)
[2021-01-23] MEDS: Bevespi Aerosphere Inhaler INH SCH ×2 (11:31→20:17)
--- NOTE | 2021-01-23 11:49 | PN ---
Subjective - Date and Time Seen Date: 01/23/21 Time: 09:25 Subjective Narrative: He continues to have pain in the right hip with activity. He was able to get up with physical therapy. He is tolerating his diet. He has not had a bowel movement. Objective - Review of Systems Generalized/Overall Review: Denies: Fever Respiratory: Denies: Shortness of Breath Cardiac: Denies: Chest Pain Abdominal: Denies: Abdominal Pain Musculoskeletal Complaints: Reports: Joint Pain - Right hip Misc: All systems neg except as marked - Vitals Vitals: Last Vital Signs Temp 37.9 C 01/23/21 10:00 Pulse 78 01/23/21 11:27 Resp 16 01/23/21 10:00 BP 111/48 01/23/21 11:27 Pulse Ox 98 01/23/21 10:00 - Abnormal Lab Findings Abnormal Lab Findings: Abnormal Lab Results 01/23/21 01/23/21 Range/Units 05:55 05:55 RBC 3.37 L (4.7-6.0) M/mm3 Hgb 10.5 L (13.5-18.0) gm/dL Hct 33.7 L (42.0-52.0) % MCH 31.2 H (27-31) pg MCHC 31.2 L (32-36) g/dl RDW 14.7 H (11.5-14.0) % Plt Count 119 L (150-450) K/mm3 MPV 13.3 H (8-11.3) fl Sodium 146 H (132-142) mmol/L Plasma Sodium 147 H (130-142) mmol/L Chloride 112 H (97-106) mmol/L BUN 41 H (6-23) mg/dL Creatinine 2.26 H (0.4-1.4) mg/dL Est GFR (Non-Af Amer) 31 L (60-130) mL/min Random Glucose 153 H (70-110) mg/dL - Exam Constitutional: Present: Alert, Cooperative, Well developed, Well nourished, No distress, Middle aged ENT Exam: Present: hearing grossly normal, moist mucous membranes Neck: Present: non-tender, supple. Absent: lymphadenopathy (R), lymphadenopathy (L) Respiratory: Present: lungs clear, no respiratory distress, no accessory muscle use, No wheezing. Absent: crackles, rhonchi Cardiovascular/Chest: Present: normal peripheral pulses, regular rate, rhythm, no edema, no murmur Abdomen: Present: Normal bowel sounds, soft, nontender Extremity: Present: no pedal edema Skin Exam: Present: normal color, warm/dry Neurologic: Present: alert, normal mood/affect Appearance: Present: appropriate appearance, appropriate insight Eye contact: Present: cooperative Thoughts: Present: normal thought pattern, normal mood /affect Cauti Physician Documentation - Urinary Catheter Management Coude Urethral Indwelling: No Date of Insertion: 01/22/21 Time of Insertion: 10:15 Assessment/Plan Plan Narrative: 65-year-old male with a past medical history of COPD, congestive heart failure, diabetes mellitus, atrial fibrillation on anticoagulation, status post pacemaker, CKD 3, recurrent UTIs, peripheral neuropathy presents from home status post fall with right hip pain. He states he was going outside to his mailbox when he slipped on ice and landed on his buttocks. He was unable to get up and laid on the ground for 40 minutes. He called his girlfriend and she came and called EMS. In the emergency department he was found to have a right mildly impacted fracture of the junction of the right femoral head and neck with underlying arthritic change. No joint dislocation or subluxation. He has been evaluated by orthopedics and they would like to take him to the OR later today. He is working with physical therapy. He is status post a percutaneous fixation, of the right nondisplaced femoral neck fracture on January 22, 2021. Plan #1 orthopedics following #2 pain management #3 Eliquis has been resumed #3 Continue bowel regimen #4 PT - Problems/Diagnosis (1) Subcapital fracture of right hip Problem: Acute Qualifiers: Encounter type: initial encounter Fracture type: closed Qualified Code(s): S72.011A - Unspecified intracapsular fracture of right femur, initial encounter for closed fracture (2) CKD (chronic kidney disease) stage 3, GFR 30-59 ml/min Problem: Chronic Qualifiers: Chronic kidney disease stage 3 subtype: stage 3b (GFR 30-44) Qualified Code(s): N18.32 - Chronic kidney disease, stage 3b (3) Hypertension Problem: Chronic Qualifiers: Hypertension type: essential hypertension Qualified Code(s): I10 - Essential (primary) hypertension (4) CHF (congestive heart failure) Problem: Chronic Qualifiers: (5) History of atrial fibrillation Problem: Chronic (6) Diabetes type 2, controlled Problem: Chronic Qualifiers: (7) COPD (chronic obstructive pulmonary disease) Problem: Chronic (8) Peripheral neuropathy Problem: Chronic
--- NOTE | 2021-01-23 15:40 | PN ---
Subjective - Date and Time Seen Date: 01/23/21 Time: 09:00 Subjective Narrative: Subjective: Reports no issues. Was able to get to the chair with therapy. Pain is well-controlled. Voiding without any complications. Tolerating by mouth intake. Denies any nausea or vomiting. Denies calf pain. Slept well. Physical exam: Alert and oriented to person, place and time Right lower extremity: Palpable dorsalis pedis pulse. Sensation grossly intact to light touch. Dressings clean and dry. Able to flex and extend ankle and toes. No excessive drainage. Calf and thigh are soft and nontender. Assessment: Postop day 1 status post percutaneous fixation of right femoral neck fracture. Plan: Due to the need for pain control, post-operative limited mobility, protection of the surgical site and joint, monitoring of the wound, and the management of chronic medical conditions, heat requires continued inpatient care. Continue with physical and occupational therapy 50% weightbearing. Continue with anticoagulation. 24 hours postoperative prophylactic antibiotics. Pain control with goal to rely on oral medications. Continue bowel regimen. Will need 6 weeks with walker or assitive device to protect joint while ambulating during the recovery process. Discharge planning -from an orthopedic standpoint he is okay to discharge when stable. Continue 50% weightbearing until follow-up. We will see him back in 2 weeks. Keep his wound dry. Use ice. Continue therapy. Objective - Vitals Vitals: Last Vital Signs Temp 37.1 C 01/23/21 14:39 Pulse 70 01/23/21 14:39 Resp 16 01/23/21 14:39 BP 103/47 01/23/21 15:21 Pulse Ox 95 01/23/21 14:39 - Abnormal Lab Findings Abnormal Lab Findings: Abnormal Lab Results 01/23/21 01/23/21 Range/Units 05:55 05:55 RBC 3.37 L (4.7-6.0) M/mm3 Hgb 10.5 L (13.5-18.0) gm/dL Hct 33.7 L (42.0-52.0) % MCH 31.2 H (27-31) pg MCHC 31.2 L (32-36) g/dl RDW 14.7 H (11.5-14.0) % Plt Count 119 L (150-450) K/mm3 MPV 13.3 H (8-11.3) fl Sodium 146 H (132-142) mmol/L Plasma Sodium 147 H (130-142) mmol/L Chloride 112 H (97-106) mmol/L BUN 41 H (6-23) mg/dL Creatinine 2.26 H (0.4-1.4) mg/dL Est GFR (Non-Af Amer) 31 L (60-130) mL/min Random Glucose 153 H (70-110) mg/dL Cauti Physician Documentation - Urinary Catheter Management Coude Urethral Indwelling: No Date of Insertion: 01/22/21 Time of Insertion: 10:15 Assessment/Plan - Problems/Diagnosis (1) Subcapital fracture of right hip Problem: Acute Qualifiers: Encounter type: subsequent encounter Fracture type: closed Fracture healing: with routine healing Qualified Code(s): S72.011D - Unspecified intracapsular fracture of right femur, subsequent encounter for closed fracture with routine healing
[2021-01-23] MEDS: SENNOSIDES/DOCUSATE SODIUM 1 TAB TABLET PO SCH (20:10)
[2021-01-23] MEDS: ROSUVASTATIN CALCIUM 20 MG TABLET PO SCH (20:11)
[2021-01-23] MEDS: TAMSULOSIN HCL 0.4 MG CAP.SR.24H PO SCH (20:11)
[2021-01-23] MEDS: CARVEDILOL 6.25 MG TABLET PO SCH (20:13)
[2021-01-23] MEDS: MONTELUKAST SODIUM 10 MG TABLET PO SCH (20:14)
[2021-01-24] MEDS: oxyCODONE HCL/ACETAMINOPHEN 1 TAB TABLET PO PRN ×4 (02:02→17:54)
[2021-01-24] MEDS: LEVOTHYROXINE SODIUM 50 MCG TABLET PO SCH (07:03)
[2021-01-24] MEDS: APIXABAN 5 MG TABLET PO SCH ×2 (09:24→20:19)
[2021-01-24] MEDS: DULoxetine HCL 30 MG CAPSULE.SA PO SCH (09:24)
[2021-01-24] MEDS: MULTIVITAMINS 1 CAP CAPSULE PO SCH (09:24)
[2021-01-24] MEDS: FAMOTIDINE 20 MG TABLET PO SCH (09:24)
[2021-01-24] MEDS: CHOLECALCIFEROL 1,000 UNIT CAPSULE PO SCH ×2 (09:24→20:21)
[2021-01-24] MEDS: ASCORBIC ACID 500 MG TABLET PO SCH (09:25)
[2021-01-24] MEDS: CARVEDILOL 12.5 MG TABLET PO SCH (09:25)
[2021-01-24] MEDS: POTASSIUM CHLORIDE 20 MEQ TABLET.SA PO SCH (09:25)
[2021-01-24] MEDS: TORSEMIDE 20 MG TABLET PO SCH (09:25)
[2021-01-24] MEDS: ALLOPURINOL 300 MG TABLET PO SCH (09:25)
[2021-01-24] MEDS: Bevespi Aerosphere Inhaler INH SCH ×2 (09:26→20:36)
--- NOTE | 2021-01-24 09:35 | PN ---
Subjective - Date and Time Seen Date: 01/24/21 Time: 08:44 Subjective Narrative: He continues to have pain in the right hip with ambulation. He is working with physical therapy. He states he has not had a bowel movement. He is tolerating his diet. Denies chest pain, shortness of breath or abdominal pain. Objective - Review of Systems Generalized/Overall Review: Denies: Fever Respiratory: Reports: Shortness of Breath Cardiac: Denies: Chest Pain Abdominal: Denies: Abdominal Pain Musculoskeletal Complaints: Reports: Joint Pain - Right hip Misc: All systems neg except as marked - Vitals Vitals: Last Vital Signs Temp 36.4 C 01/24/21 06:00 Pulse 69 01/24/21 06:00 Resp 20 01/24/21 06:00 BP 111/54 01/24/21 06:00 Pulse Ox 97 01/24/21 06:00 - Exam Constitutional: Present: Alert, Cooperative, Well developed, Well nourished, No distress, Elderly, Middle aged ENT Exam: Present: hearing grossly normal Neck: Present: non-tender, supple. Absent: lymphadenopathy (R), lymphadenopathy (L) Respiratory: Present: lungs clear, no accessory muscle use, No wheezing. Absent: crackles, rhonchi Cardiovascular/Chest: Present: normal peripheral pulses, regular rate, rhythm, no edema, no murmur Abdomen: Present: Normal bowel sounds, soft, nontender Extremity: Present: no pedal edema Skin Exam: Present: normal color, warm/dry Neurologic: Present: alert, normal mood/affect Appearance: Present: appropriate appearance, appropriate insight Eye contact: Present: cooperative Thoughts: Present: normal thought pattern, normal mood /affect Cauti Physician Documentation - Urinary Catheter Management Coude Urethral Indwelling: No Date of Insertion: 01/22/21 Time of Insertion: 10:15 Assessment/Plan Plan Narrative: 65-year-old male with a past medical history of COPD, congestive heart failure, diabetes mellitus, atrial fibrillation on anticoagulation, status post pacemaker, CKD 3, recurrent UTIs, peripheral neuropathy presents from home status post fall with right hip pain. He states he was going outside to his mailbox when he slipped on ice and landed on his buttocks. He was unable to get up and laid on the ground for 40 minutes. He called his girlfriend and she came and called EMS. In the emergency department he was found to have a right mildly impacted fracture of the junction of the right femoral head and neck with underlying arthritic change. No joint dislocation or subluxation. He has been evaluated by orthopedics and they would like to take him to the OR later today. He is working with physical therapy. He is status post a percutaneous fixation, of the right nondisplaced femoral neck fracture on January 22, 2021. Plan #1 orthopedics following #2 pain management #3 Eliquis has been resumed #3 Continue bowel regimen #4 PT #5 discharge planning - Problems/Diagnosis (1) Subcapital fracture of right hip Problem: Acute Qualifiers: Encounter type: subsequent encounter Fracture type: closed Fracture healing: with routine healing Qualified Code(s): S72.011D - Unspecified intracapsular fracture of right femur, subsequent encounter for closed fracture with routine healing (2) CKD (chronic kidney disease) stage 3, GFR 30-59 ml/min Problem: Chronic Qualifiers: Chronic kidney disease stage 3 subtype: stage 3b (GFR 30-44) Qualified Code(s): N18.32 - Chronic kidney disease, stage 3b (3) Hypertension Problem: Chronic Qualifiers: Hypertension type: essential hypertension Qualified Code(s): I10 - Essential (primary) hypertension (4) CHF (congestive heart failure) Problem: Chronic Qualifiers: (5) History of atrial fibrillation Problem: Chronic (6) Diabetes type 2, controlled Problem: Chronic Qualifiers: (7) COPD (chronic obstructive pulmonary disease) Problem: Chronic (8) Peripheral neuropathy Problem: Chronic
[2021-01-24] MEDS: FENOFIBRATE,MICRONIZED 134 MG CAPSULE PO SCH (09:48)
[2021-01-24] MEDS: OMEGA-3 FATTY ACIDS 1 CAP CAPSULE PO SCH ×2 (15:49→20:23)
[2021-01-24] MEDS: POLYETHYLENE GLYCOL 3350 17 GM PACKET PO SCH (17:55)
[2021-01-24] MEDS: CEPHALEXIN MONOHYDRATE 250 MG CAPSULE PO SCH (17:55)
[2021-01-24] MEDS: TAMSULOSIN HCL 0.4 MG CAP.SR.24H PO SCH (20:18)
[2021-01-24] MEDS: FINASTERIDE 5 MG TABLET PO SCH (20:20)
[2021-01-24] MEDS: SENNOSIDES/DOCUSATE SODIUM 1 TAB TABLET PO SCH (20:20)
[2021-01-24] MEDS: MONTELUKAST SODIUM 10 MG TABLET PO SCH (20:21)
[2021-01-24] MEDS: ROSUVASTATIN CALCIUM 20 MG TABLET PO SCH (20:35)
[2021-01-24] MEDS: CARVEDILOL 6.25 MG TABLET PO SCH (20:45)
[2021-01-24] MEDS ORDERED: FENOFIBRATE,MICRONIZED 134 MG CAPSULE PO SCH (21:00)
[2021-01-25] MEDS: oxyCODONE HCL/ACETAMINOPHEN 1 TAB TABLET PO PRN ×2 (04:04→08:07)
[2021-01-25] MEDS: LEVOTHYROXINE SODIUM 50 MCG TABLET PO SCH (07:52)
--- NOTE | 2021-01-25 09:08 | DS ---
(1) Subcapital fracture of right hip Problem: Acute Qualifiers: Encounter type: subsequent encounter Fracture type: closed Fracture healing: with routine healing Qualified Code(s): S72.011D - Unspecified intracapsular fracture of right femur, subsequent encounter for closed fracture with routine healing (2) CKD (chronic kidney disease) stage 3, GFR 30-59 ml/min Problem: Chronic Qualifiers: Chronic kidney disease stage 3 subtype: stage 3b (GFR 30-44) Qualified Code(s): N18.32 - Chronic kidney disease, stage 3b (3) Hypertension Problem: Chronic Qualifiers: Hypertension type: essential hypertension Qualified Code(s): I10 - Essent ial (primary) hypertension (4) CHF (congestive heart failure) Problem: Chronic Qualifiers: (5) History of atrial fibrillation Problem: Chronic (6) Diabetes type 2, controlled Problem: Chronic Qualifiers: (7) COPD (chronic obstructive pulmonary disease) Problem: Chronic (8) Peripheral neuropathy Problem: Chronic Hospital Course: 65-year-old male with a past medical history of COPD, congestive heart failure, diabetes mellitus, atrial fibrillation on anticoagulation, status post pacemaker, CKD 3, recurrent UTIs, peripheral neuropathy presents from home status post fall with right hip pain. He states he was going outside to his mailbox when he slipped on ice and landed on his buttocks. He was unable to get up and laid on the ground for 40 minutes. He called his girlfriend and she came and called EMS. In the emergency department he was found to have a right mildly impacted fracture of the junction of the right femoral head and neck with underlying arthritic change. No joint dislocation or subluxation. He has been evaluated by orthopedics and they would like to take him to the OR later today. He is working with physical therapy. He is status post a percutaneous fixation, of the right nondisplaced femoral neck fracture on January 22, 2021. He is doing well and is stable to be discharged to the [facility] for rehab today. Procedures Performed: see notes below List Procedures: percutaneous fixation, of the right nondisplaced femoral neck fracture on January 22, 2021. Results and Findings: Lab Pending Results 01/22/21 03:00: WBC 7.2, RBC 4.16 L, Hgb 13.2 L, Hct 40.9 L, MCV 98.3, MCH 31.7 H, MCHC 32.3, RDW 14.4 H, Plt Count 158, MPV 12.5 H, Immature Gran % (Auto) 0.30, Immature Gran # (Auto) 0.02, Neutrophils % 70.2, Lymphocytes % 18.4 L, Monocytes % 8.2, Eosinophils % 2.5, Basophils % 0.4, Nucleated RBC % 0.0, Neutrophils # 5.1, Lymphocytes # 1.33 L, Monocytes # 0.6, Eosinophils # 0.2, Absolute Basophils 0.0 01/22/21 03:00: Sodium 143 H, Plasma Sodium 144 H, Potassium 4.1, Chloride 108 H, Carbon Dioxide 27.5, Anion Gap 11.6, BUN 59 H, Creatinine 2.60 H, Est GFR (Non-Af Amer) 27 L, BUN/Creatinine Ratio 22.7 H, Random Glucose 132 H, Calcium 9.1, Calcium Adj for Albumin 8.9, Total Bilirubin 0.4, AST 25, ALT 30, Alkaline Phosphatase 51, Total Protein 7.6, Albumin 3.9 01/22/21 03:00: PT 11.4 H, INR (Anticoag Therapy) 1.10 H 01/22/21 04:15: SARS-CoV-2 (PCR) Not detected 01/22/21 05:15: Troponin I 0.075 01/23/21 05:55: WBC 8.4, RBC 3.37 L, Hgb 10.5 L, Hct 33.7 L, MCV 100.0, MCH 31.2 H, MCHC 31.2 L, RDW 14.7 H, Plt Count 119 L, MPV 13.3 H 01/23/21 05:55: Sodium 146 H, Plasma Sodium 147 H, Potassium 3.9, Chloride 112 H, Carbon Dioxide 28.3, Anion Gap 9.6, BUN 41 H, Creatinine 2.26 H, Est GFR (Non-Af Amer) 31 L, BUN/Creatinine Ratio 18.1, Random Glucose 153 H, Calcium 8.2 Discharge Location: [facility] Disposition: SNF Condition: Stable Level of Care: SNF Discharge Activity: Partial-Weight bearing - 50% weightbearing on the right hip, until follows up with orthopedics in 2 weeks Discharge Diet: Consistent carbs, Low salt [facility] Therapy: Physical Therapy, Occupation Therapy Referrals: Cassy Mar MD [Primary Care Provider] - Additional Patient Instructions (free text): To [facility] for therapies, PT and OT to evaluate and treat. Follow up with [facility] Orthopedic office on FridayFebruary 09 at 9:30am. Prescriptions (Any new or edited meds): oxyCODONE HCL/ACETAMINOPHEN [Percocet 5 MG/325 MG] 1 tab PO Q2H PRN #60 tab PRN Reason: Moderate Pain (Pain Scale 4-6) Transmission Status: Sent to [facility] Complete Home Medications List: Complete Home Medication List: Cholecalciferol (Vitamin D3) [Vitamin D3] 2,000 unit PO BID 05/31/18 Montelukast Sodium [Singulair] 10 mg PO HS 05/31/18 allopurinol 100 mg tablet 300 mg PO DAILY tab 12/21/18 apixaban 5 mg tablet 5 mg PO BID 12/10/19 famotidine 20 mg tablet 20 mg PO DAILY tab 01/19/20 omega-3 fatty acids 1,000 mg capsule 1,000 mg PO BID 01/19/20 potassium chloride 20 mEq tablet,extended release(part/cryst) 20 meq PO DAILY tab 01/19/20 vit C 250 mg-E 200 unit-zinc 40 mg-copper 1 [id number] capsule 1 tab PO DAILY 01/19/20 blood-glucose meter See Rx Instructions .ROUTE .MEDSUPPLY #1 ea 04/19/20 Sacubitril/Valsartan [Entresto 97 mg-103 mg Tablet] 1 ea PO BID 06/23/20 Torsemide [Demadex] 60 mg PO DAILY 06/23/20 finasteride 5 mg tablet 5 mg PO DAILY 06/23/20 albuterol sulfate 90 mcg/actuation aerosol inhaler 2 puff IH Q6H PRN g 06/27/20 metolazone 2.5 mg tablet 2.5 mg PO .weekly PRN tab 06/27/20 multivitamin 1 tab PO DAILY 06/27/20 oxycodone 5 mg tablet 10 mg PO Q6H PRN tab 06/27/20 carvedilol 25 mg tablet 12.5 mg PO QAM tab 07/26/20 duloxetine 60 mg capsule,delayed release 60 mg PO DAILY #90 cap 08/08/20 blood sugar diagnostic See Rx Instructions .ROUTE .MEDSUPPLY ea 10/23/20 glycopyrrolate 9 mcg-formoterol 4.8 mcg HFA aerosol inhaler 2 puff IH BID 10/23/20 spironolactone 25 mg tablet 25 mg PO DAILY PRN 10/23/20 levothyroxine 50 mcg tablet 50 mcg PO DAILY #30 tab 11/13/20 fenofibrate micronized 134 mg capsule 134 mg PO DAILY #30 cap 11/27/20 tamsulosin 0.4 mg capsule 0.8 mg PO HS cap 12/29/20 Ascorbic Acid [Vitamin C] 500 mg PO DAILY 01/22/21 Polyethylene Glycol 3350 [Miralax] 8.5 gm PO DAILY 01/22/21 Carvedilol [Coreg] 6.25 mg PO QPM 01/23/21 Cyanocobalamin (Vitamin B-12) [Vitamin B12] 5,000 mcg PO DAILY 01/23/21 [place]-3S/Dha/Epa/Fish Oil [Fish Oil 1,200 mg Softgel] 1 ea PO BID 01/23/21 Sacubitril/Valsartan [Entresto 97 mg-103 mg Tablet] 1 ea PO BID 01/23/21 Cephalexin [Keflex] 250 mg PO DAILY 01/24/21 Polyethylene Glycol 3350 [Miralax] 17 gm PO DAILY 01/24/21 atorvastatin 40 mg tablet 40 mg PO DAILY #30 tab 01/24/21 Sennosides/Docusate Sodium [Senokot-S] 2 tab PO HS tab 01/25/21 oxyCODONE HCL/ACETAMINOPHEN [Percocet 5 MG/325 MG] 1 tab PO Q2H PRN #60 tab 01/25/21 Forms: Patient Portal Registration
[2021-01-25] MEDS: CARVEDILOL 12.5 MG TABLET PO SCH (09:29)
[2021-01-25] MEDS: DULoxetine HCL 30 MG CAPSULE.SA PO SCH (09:30)
[2021-01-25] MEDS: APIXABAN 5 MG TABLET PO SCH (09:31)
[2021-01-25] MEDS: TORSEMIDE 20 MG TABLET PO SCH (09:31)
[2021-01-25] MEDS: Bevespi Aerosphere Inhaler INH SCH (09:32)
[2021-01-25] MEDS: POTASSIUM CHLORIDE 20 MEQ TABLET.SA PO SCH (09:33)
[2021-01-25] MEDS: CEPHALEXIN MONOHYDRATE 250 MG CAPSULE PO SCH (09:33)
[2021-01-25] MEDS: FAMOTIDINE 20 MG TABLET PO SCH (09:36)
[2021-01-25] MEDS: MULTIVITAMINS 1 CAP CAPSULE PO SCH (09:36)
[2021-01-25] MEDS: ALLOPURINOL 300 MG TABLET PO SCH (09:37)
[2021-01-25] MEDS: ASCORBIC ACID 500 MG TABLET PO SCH (09:37)
[2021-01-25] MEDS: CHOLECALCIFEROL 1,000 UNIT CAPSULE PO SCH (09:37)
[2021-01-25] MEDS: OMEGA-3 FATTY ACIDS 1 CAP CAPSULE PO SCH (09:57)
[2021-01-25] MEDS: SPIRONOLACTONE 25 MG TABLET PO PRN (10:27)
[2021-01-25] MEDS: POLYETHYLENE GLYCOL 3350 17 GM PACKET PO SCH (10:28)
[2021-01-25 11:07] VITALS: BP 115/52
== END 2021-01-25 11:04 | DRG 481 ==
LOC: ER 02:40 → MS 05:47
PROVIDERS: ADMIT Family Medicine; ATTEND Internal Medicine
DX: I48.20 Chronic atrial fibrillation, unspecified; S72.011A Unspecified intracapsular fracture of right femur, initial encounter for closed fracture; N18.32 Chronic kidney disease, stage 3b; J44.9 Chronic obstructive pulmonary disease, unspecified; G62.9 Polyneuropathy, unspecified; E11.22 Type 2 diabetes mellitus with diabetic chronic kidney disease; Y92.009 Unspecified place in unspecified non-institutional (private) residence as the place of occurrence of the external cause; Y93.89 Activity, other specified; W00.0XXA Fall on same level due to ice and snow, initial encounter; I13.0 Hypertensive heart and chronic kidney disease with heart failure and stage 1 through stage 4 chronic kidney disease, or unspecified chronic kidney disease; I50.9 Heart failure, unspecified